=== PATIENT | female | born 1930 | race Asian ===

== ENCOUNTER 2019-03-27 14:18 | Inpatient (IN) | payer OTHER ==
[~2019-03-27] VITALS: Ht 152.4 cm; Wt 73.9 kg
[2019-03-27] MEDS ORDERED: HYDROmorphONE 0.5 MG/0.5 ML SYG IM STA (15:02)
[2019-03-27] MEDS ORDERED: ONDANSETRON (ODT) 4 MG TAB ODT STA (15:02)
[2019-03-27] MEDS ORDERED: THYROID PO (16:29)
[2019-03-27] MEDS ORDERED: SOD CHLORIDE 0.9% 1,000 ML IV SCH (17:32)
--- NOTE | 2019-03-27 17:37 | ERD ---
ER Documentation Chief Complaint Chief Complaint Back pain HPI This 88-year-old female who was walking across her living room last night with her walker when she said that she got it caught on the carpet and she fell back onto her buttocks. She says she did not hit her head and get knocked unconscious and is complaining of sharp mid lumbar pain today. No radiation pain down the legs no loss of bowel or bladder. Denies any headache neck pain or focal neurological complaints no saddle anesthesia or numbness or weakness in her legs ROS All systems reviewed and are negative except as per history of present illness. Medications Home Meds Reported Medications [Thyroid] No Conflict Check, 1 TAB PO Q28D 03/27/19 Allergies Allergies: Coded Allergies: Penicillins (Unverified Allergy, Unknown, 03/27/19) PMhx/Soc History of Surgery: Yes (Hysterectomy, R mastectomy) Anesthesia Reaction: No Hx Neurological Disorder: No Hx Respiratory Disorders: No Hx Cardiac Disorders: Yes (HTN, pacemaker) Hx Psychiatric Problems: No Hx Miscellaneous Medical Probl: No Hx Alcohol Use: No Hx Substance Use: No Hx Tobacco Use: Yes (Quit 2011) Smoking Status: Former smoker FmHx Family History: No coronary disease Physical Exam Vitals Vital Signs Date Temp Pulse Resp B/P (MAP) Pulse Ox O2 O2 Flow FiO2 Time Delivery Rate 03/27/19 91 16 138/67 94 Nasal 3.0 16:07 (90) Cannula 03/27/19 98.4 84 18 185/59 91 Room Air 15:00 (101) Physical Exam Const: No acute distress Head: Atraumatic Eyes: Normal Conjunctiva ENT: Normal External Ears, Nose and Mouth. Neck: Full range of motion. No meningismus. Resp: Clear to auscultation bilaterally Cardio: Regular rate and rhythm, no murmurs Abd: Soft, non tender, non distended. Normal bowel sounds Skin: No petechiae or rashes Back: There is midline lumbar tenderness around lumbar 2,3,4, lumbar paraspinal muscle spasm, negative straight leg test Ext: No cyanosis, or edema Neur: Awake and alert Psych: Normal Mood and Affect Results 24 hrs Current Medications Medications Dose Sig/Justin Start Time Status Last (Trade) Ordered Route PRN Stop Time Admin Dose Reason Admin 1 mg ONCE STAT 03/27/19 DC 03/27/19 Hydromorphone IM 15:02 03/27/19 15:20 HCl 15:11 (Dilaudid) Ondansetron 4 mg ONCE STAT 03/27/19 DC 03/27/19 HCl (Zofran ODT 15:02 03/27/19 15:19 Odt) 15:11 Procedures/MDM Patient: RENNY RUTLEDGE : 1930 Age: 88 Sex: F MR #: [id number] DOS: 03/27/19 1502 Ordering MD: SANDRA CHANDRA DO Location: E/R Room/Bed: PROCEDURE: CT Lumbar Spine without contrast. CLINICAL INDICATION: Trauma. TECHNIQUE: The study was performed on a multislice multidetector CT scanner. Spiral axial 1 mm images were obtained through the lumbar spine without intravenous contrast. 1 or more of the following dose reduction techniques were utilized: Automated exposure control, adjustment of the mA and/or kV according to patient's size, iterative reconstruction technique. Coronal and sagittal reformations were obtained. The images were reviewed on a PACS workstation. DICOM images are available. RADIATION DOSE: CTDIvol: 35.47 mGy mGy DLP: 1020.33 mGy.cm mGy-cm COMPARISON: No prior studies are available for comparison. FINDINGS: There is diffuse moderate osteopenia there is a 15% intervertebral body height loss in the L for a vertebral body with suggestion of subchondral sclerosis. The remaining vertebral body heights are maintained. There are anterior osteophytes at L5-S1. There is transitional anatomy with 6 lumbar-type vertebral bodies and lumbarization of the S1 vertebral body. The posterior elements are unremarkable. L1-L2: The posterior margin of the disc is normal in appearance. No significant disc bulge or protrusion is evident. The central canal and neural foramina are adequately patent. L2-L3: The posterior margin of the disc is normal in appearance. No significant disc bulge or protrusion is evident. The central canal and neural foramina are adequately patent. L3-L4: There is a 1-2 mm annular disc bulge. The thecal sac and lateral recesses are patent. There is mild bilateral facet spondylosis. The neural foramina are patent. L4-L5: There is a 1-2 mm annular disc bulge. The thecal sac and lateral recesses are patent. There is mild bilateral facet spondylosis. The neural foramina are patent. L5-S1: There is a 2-3 mm annular disc bulge, slightly asymmetric to the foraminal regions. The thecal sac and lateral recesses are patent. There is mild bilateral facet spondylosis. There is mild bilateral neural foraminal narrowing. IMPRESSION: 1. 15% anterior compression deformity of the L3 vertebral body, concerning for possible acute fracture. MRI is recommended to exclude fracture. 2. Diffuse moderate osteopenia. 3. Transitional anatomy with 6 lumbar-type vertebral bodies. 4. Multilevel mild spondylosis/degenerative enthesopathy without significant narrowing of the lumbar thecal sac, lateral recesses or neural foramina. RPTAT: HGAS .Jermaine Rosas MD, MD Date Time Electronically viewed and signed by .Jermaine Rosas MD, on 03/27/2019 16:27 .S/ CC: SANDRA CHANDRA DO [id number] The patient lives alone and cannot take care of herself. She is unable to walk and can do her activities of daily living. She is also having some pain still at any movement after pain medicine was given here. We will admit for pain control and placement Departure Diagnosis: Primary Impression: Compression fracture of lumbar vertebra Encounter type: initial encounter Lumbar vertebra fracture level: L3 Qualified Codes: S32.030A - Wedge compression fracture of third lumbar vertebra, initial encounter for closed fracture Condition: Stable SANDRA CHANDRA DO March 27, 2019 17:36
[2019-03-27] MEDS ORDERED: ACETAMINOPHEN 325 MG TAB PO PRN (18:00)
[2019-03-27] MEDS ORDERED: ONDANSETRON 4 MG INJ IV PRN (18:00)
--- NOTE | 2019-03-27 19:06 | HP ---
Date/Time of Note Date/Time of Note DATE: 03/27/19 TIME: 18:58 Assessment/Plan VTE Prophylaxis SCD applied (from Nsg): Yes Pharmacological prophylaxis: heparin Lines/Catheters IV Catheter Type (from Nrsg): Saline Lock Assessment/Plan Hospital Course 88 yo female with h/o hyperparathyroidsm and with PPM for unclear indication who presents after a fall yesterday and found to have possible L3 fracture on CT - Will provide analgesia - Consult neurosurgery for evaluation - Will hold off on further imaging for now - From her history this was a mechanical fall though not entirely clear. I will notify her actuary manager to her admission and consider ppm interrogation - Will check routine labs h/o hypeparathyroid: - check labs. will notify her cdl company driver Dr Ybarra to her admission HPI/ROS Admit Date/Time Admit Date/Time March 27, 2019 at 17:34 Hx of Present Illness 88 yo female with h/o hyperparathyroidism and h/o PPM who presents with back pain after fall Patient lives alone. Ambulates with walker. She fell yesterday evening and was unable to get up. Her kids have a camera monitor in her house where they noticed her down so came to help her. She was in terrible pain so could not get up. Came to ED where CT back shows 15% anterior compression deformity of the L3 vertebral body, concerning for possible acute fracture She has been given IV analgesia and currently feels fine She says she did not syncopize, that she tripped and fell She was down for numerous hours but not clear how long exactly She denies any focal weakness or numbness ROS Constitutional: no complaints, improved Eyes: no complaints ENT: no complaints Respiratory: no complaints Cardiovascular: no complaints Gastrointestinal: no complaints Genitourinary: no complaints Musculoskeletal: no complaints Skin: no complaints Neurologic: no complaints Endocrine: no complaints Lymphatic: no complaints Psychological: no complaints, nl mood/affect Immunologic: no complaints PMH/Family/Social Past Medical History Medical History: no pertinent history Medications Current Medications Ondansetron HCl (Zofran Inj) 4 mg BRIDGE ORDER PRN IV NAUSEA/VOMITING; Start 03/27/19 at 18:00; Stop 03/28/19 at 17:59 Acetaminophen (Tylenol Tab) 650 mg ER BRIDGE PRN PO .MILD PAIN 1-3 OR TEMP; Start 5/3/19 at 18:00; Stop 03/28/19 at 17:59 Coded Allergies: Penicillins (Unverified Allergy, Unknown, 03/27/19) Past Surgical History Past Surgical Hx: no surgical history Family History Significant Family History: no pertinent family hx Social History Alcohol Use: none Smoking Status: Former smoker Drug Use: none Exam/Review of Systems Vital Signs Vitals Vital Signs Date Temp Pulse Resp B/P (MAP) Pulse Ox O2 O2 Flow FiO2 Time Delivery Rate 03/27/19 85 18 100/65 95 Room Air 17:58 (77) 03/27/19 3.0 16:07 03/27/19 98.4 15:00 Exam Constitutional: alert, oriented, well developed Psych: no complaints, nl mood/affect Head: normocephalic, atraumatic Eyes: nl conjunctiva, EOMI, nl lids, nl sclera, PERRL ENMT: nl external ears & nose, nl lips & teeth, nl nasal mucosa & septum Neck: supple, non-tender Respiratory: clear to auscultation, normal air movement Cardiovascular: regular rate and rhythm, nl pulses Gastrointestinal: soft, nl liver, spleen, non-tender Musculoskeletal: nl extremities to inspection Extremities: normal pulses Neurological: INVESTIGATIONS CHIEF II-XII intact, nl mental status, nl speech, nl strength Skin: nl turgor; No rash or lesions Lymph: nl lymph nodes BREANNA BLOOD MD March 27, 2019 19:06
[2019-03-27 19:11] VITALS: BP 132/61; PULSE 85; RESP 18
[2019-03-27] MEDS ORDERED: NACL 0.9% 3 ML SYG IV SCH (19:30)
[2019-03-27] MEDS ORDERED: HYDROCODONE/APAP (5/325) TAB PO PRN (19:30)
[2019-03-27] MEDS ORDERED: IBUPROFEN 600 MG TAB PO PRN (19:30)
[2019-03-27 20:09] VITALS: BP 145/63; PULSE 88; RESP 18
[2019-03-28 02:19] VITALS: BP 155/70; PULSE 92; RESP 18
[2019-03-28] MEDS: ACETAMINOPHEN 325 MG TAB PO PRN (03:45)
[2019-03-28 07:14] VITALS: BP 149/67; PULSE 77; RESP 16
--- NOTE | 2019-03-28 09:06 | CONS ---
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 In most cases of spontaneous spinal fracture, recommendation is for initiation of parathyroid hormone analog anabolic bone therapy. However, this would be contraindicated in pt. w/ primary hyperparathyroidism. Will order reclast 5 mg IV x 1 to ensure pt. remains on bisphosphonate therapy. Qualifiers: Qualified Codes: M80.88XA - Other osteoporosis with current pathological fracture, vertebra(e), initial encounter for fracture (2) Primary hyperparathyroidism Status: Chronic Comment: Pt. likely should have outpt. reeval by head and neck surgeons or tumor-endo surgeons to decide if this qualifies her as better candidate for parathyroidectomy. (3) Type 2 diabetes mellitus without complications Status: Chronic Comment: New diagnosis of T2DM w/ A1c 7.3%. Although this is in goal for her age pt. would likely do better w/ low-risk therapy of linalgiptin daily. Will add this and monitor glucose Qualifiers: Qualified Codes: E11.9 - Type 2 diabetes mellitus without complications Consultation Date/Type/Reason Admit Date/Time March 27, 2019 at 17:34 Date of Consultation: March 28, 2019 Type of Consult Endocrinology Reason for Consultation Osteoporotic compression fracture in primary hyperparathyroidism Requesting Provider: BREANNA BLOOD MD Date/Time of Note DATE: 03/28/19 TIME: 08:54 Hx of Present Illness 88 y/o C F w/ h/o primary HPH and osteoporosis, BrCA, sick sinus syndrome w/ pacemaker in [facility] until yesterday w/ fall at home. In pain and unable to get up. Daughters had camera in house and came and brought her to hospital. In ER found to have 15% compression fracture of L3. Neurosurgery consult pending. Of note, pt. off her ibandronate for 2-3 months but PMD restarted it last month. Found to have A1c 7.3%. Endo consulted. Constitutional: no complaints Eyes: no complaints ENT: no complaints Respiratory: no complaints Cardiovascular: no complaints Gastrointestinal: no complaints Genitourinary: no complaints Musculoskeletal: back pain Neurologic: no complaints Past Medical History Medical History: cancer (breast), other (primary hyperparathyroidism, bradyarrhythmia) Home Meds Reported Medications [Thyroid] No Conflict Check, 1 TAB PO Q28D 03/27/19 Medications Current Medications Ondansetron HCl (Zofran Inj) 4 mg BRIDGE ORDER PRN IV NAUSEA/VOMITING; Start 03/27/19 at 18:00; Stop 03/28/19 at 17:59 Acetaminophen (Tylenol Tab) 650 mg ER BRIDGE PRN PO .MILD PAIN 1-3 OR TEMP; Start 03/27/19 at 18:00; Stop 03/28/19 at 17:59 IV Flush (NS 3 ml) 3 ml PER PROTOCOL IV ; Start 03/27/19 at 19:30 Ibuprofen (Motrin) 600 mg Q6H PRN PO .PAIN 1-3; Start 03/27/19 at 19:30 Acetaminophen/ Hydrocodone Bitart ([place] (5/325)) 1 tab Q6H PRN PO .MOD PAIN 4- 6; Start 03/27/19 at 19:30 Morphine Sulfate (morphine) 2 mg Q4H PRN IV .SEVERE PAIN 7-10; Start 03/27/19 at 19:30 Acetaminophen (Tylenol Tab) 650 mg Q6H PRN PO MILD PAIN(1-3)OR ELEVATED TEMP Last administered on 03/28/19at 03:45; Admin Dose 650 MG; Start 03/28/19 at 04:00 Allergies: Coded Allergies: Penicillins (Unverified Allergy, Unknown, 03/27/19) Past Surgical History Past Surgical Hx: other (mastectomy, ARMANDO-BSO, pacemaker placement) Family History Significant Family History: COPD (father) Social History b. 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 Alcohol Use: none Smoking Status: Former smoker (4 cigs/d for 60 years, quit when pacemaker was placed) Drug Use: none Exam/Review of Systems Exam Vitals VS - Last 72 Hours, by Label Date Temp Pulse Resp B/P (MAP) Pulse Ox O2 O2 Flow FiO2 Time Delivery Rate 03/28/19 98.4 77 16 149/67 93 Nasal 07:14 (94) Cannula 03/28/19 98.8 05:06 03/28/19 98.8 05:06 03/28/19 100.4 03:45 03/28/19 100.4 02:59 03/28/19 100.1 92 18 155/70 92 02:19 (98) 03/27/19 98.2 88 18 145/63 94 20:09 (90) 03/27/19 98.7 85 18 132/61 94 Nasal 3.0 19:11 (84) Cannula 03/27/19 85 18 100/65 95 Room Air 17:58 (77) 03/27/19 91 16 138/67 94 Nasal 3.0 16:07 (90) Cannula 03/27/19 98.4 84 18 185/59 91 Room Air 15:00 (101) Vital Signs Date Temp Pulse Resp B/P (MAP) Pulse Ox O2 O2 Flow FiO2 Time Delivery Rate 03/28/19 98.4 77 16 149/67 93 Nasal 07:14 (94) Cannula 03/27/19 3.0 19:11 Intake and Output 03/27/19 03/27/19 03/28/19 1515:00 23:00 07:00 IntakeIntake Total 200 ml BalanceBalance 200 ml Constitutional: alert, oriented, obese Psych: no complaints, nl mood/affect Eyes: nl conjunctiva, EOMI, nl lids, nl sclera, PERRL ENMT: nl external ears & nose, mucosa pink and moist Neck: supple, non-tender; No bruits, No masses, No thyromegaly Respiratory: clear to auscultation, normal air movement Cardiovascular: regular rate and rhythm, nl pulses; No edema, No murmurs/extra sounds, No rub Gastrointestinal: soft, nl liver, spleen, non-tender, bowel sounds; No mass, No rebound or guarding Musculoskeletal: nl extremities to inspection Extremities: normal pulses; No cyanosis, No clubbing, No edema Neurological: LABEL FUSER TENDER II-XII intact, nl mental status, nl speech, nl strength Results Result Diagram: 03/28/19 0540 03/28/19 0540 Results 24hrs Laboratory Tests Test 03/27/19 19:32 03/28/19 05:40 White Blood Count 9.7 11.2 H Red Blood Count 4.91 4.65 Hemoglobin 14.8 14.1 Hematocrit 45.6 42.4 Mean Corpuscular Volume 92.9 91.2 Mean Corpuscular Hemoglobin 30.1 30.3 Mean Corpuscular Hemoglobin Concent 32.5 33.3 Red Cell Distribution Width 13.8 13.9 Platelet Count 305 308 Mean Platelet Volume 9.3 9.6 Immature Granulocytes % 0.600 H 0.500 H Neutrophils % 77.1 H 79.7 H Lymphocytes % 14.9 L 11.1 L Monocytes % 5.5 6.8 Eosinophils % 1.4 1.5 Basophils % 0.5 0.4 Nucleated Red Blood Cells % 0.0 0.0 Immature Granulocytes # 0.060 H 0.060 H Neutrophils # 7.5 8.9 H Lymphocytes # 1.5 1.2 Monocytes # 0.5 0.8 Eosinophils # 0.1 0.2 Basophils # 0.1 0.1 Nucleated Red Blood Cells # 0.0 0.0 Prothrombin Time 13.2 Prothrombin Time Ratio 1.0 INR International Normalized Ratio 0.99 Sodium Level 138 137 Potassium Level 4.8 4.6 Chloride Level 105 104 Carbon Dioxide Level 25 25 Anion Gap 8 8 Blood Urea Nitrogen 13 13 Creatinine 0.56 0.66 Est Glomerular Filtrat Rate mL/min Glucose Level 146 230 H Calcium Level 10.9 H 11.1 H Total Bilirubin 0.7 0.5 Direct Bilirubin 0.00 0.00 Indirect Bilirubin 0.7 0.5 Aspartate Amino Transf (AST/SGOT) 22 23 Alanine Aminotransferase (ALT/SGPT) 16 15 Alkaline Phosphatase 130 H 114 Total Protein 7.6 7.0 Albumin 3.8 3.5 Globulin 3.80 H 3.50 H Albumin/Globulin Ratio 1.00 1.00 Hemoglobin A1c 7.3 H Medications Medication Current Medications Ondansetron HCl (Zofran Inj) 4 mg BRIDGE ORDER PRN IV NAUSEA/VOMITING; Start 03/27/19 at 18:00; Stop 03/28/19 at 17:59 Acetaminophen (Tylenol Tab) 650 mg ER BRIDGE PRN PO .MILD PAIN 1-3 OR TEMP; Start 03/27/19 at 18:00; Stop 03/28/19 at 17:59 IV Flush (NS 3 ml) 3 ml PER PROTOCOL IV ; Start 03/27/19 at 19:30 Ibuprofen (Motrin) 600 mg Q6H PRN PO .PAIN 1-3; Start 03/27/19 at 19:30 Acetaminophen/ Hydrocodone Bitart ([place] (5/325)) 1 tab Q6H PRN PO .MOD PAIN 4- 6; Start 03/27/19 at 19:30 Morphine Sulfate (morphine) 2 mg Q4H PRN IV .SEVERE PAIN 7-10; Start 03/27/19 at 19:30 Acetaminophen (Tylenol Tab) 650 mg Q6H PRN PO MILD PAIN(1-3)OR ELEVATED TEMP Last administered on 03/28/19at 03:45; Admin Dose 650 MG; Start 03/28/19 at 04:00 CHIKA GANDHI MD March 28, 2019 09:05
[2019-03-28] MEDS ORDERED: GLUCOSE GEL 15 GRAM TUBE BUCCAL PRN (09:30)
[2019-03-28] MEDS ORDERED: DEXTROSE 50% 50 ML SYRINGE IV PRN ×2 (09:30)
[2019-03-28] MEDS ORDERED: GLUCAGON 1 MG INJ IM PRN (09:30)
[2019-03-28] MEDS ORDERED: GLUCOSE GEL 15 GRAM TUBE PO PRN ×2 (09:30)
[2019-03-28] MEDS: LINAGLIPTIN 5 MG TABLET PO SCH (09:32)
[2019-03-28] MEDS: morphine 2 MG INJ IV PRN ×2 (09:36→15:11)
[2019-03-28] MEDS ORDERED: ZOLEDRONIC ACID IVPB ONE (11:00)
[2019-03-28] MEDS ORDERED: SOD CHLORIDE 0.9% IVPB ONE (11:00)
[2019-03-28] MEDS: INSULIN ASPART [NOVOLOG] 3 ML PEN SC SCH ×3 (12:00→21:00)
--- NOTE | 2019-03-28 14:11 | QN ---
Documentation Comment 88 year old female s/p ground level fall complains of back pain was evaluated with CT of the lumbar spine showing a small superior endplate fracture with minimal associated loss of height and no retropulsion of bone or canal compromise. I have personally reviewed these images and to my eye this fracture may not even be an acute fracture. In any event it is a stable fracture pattern and no intervention is indicated. The patient may be fitted for a TLSO brace and follow up with me for repeat xray. Thank you. LIZZY BIGGS MD March 28, 2019 14:11
[2019-03-28 14:57] VITALS: BP 148/75; PULSE 80; RESP 16
--- NOTE | 2019-03-28 15:04 | PN ---
Date/Time of Note Date/Time of Note DATE: 03/28/19 TIME: 15:02 Assessment/Plan VTE Prophylaxis Risk score (from Ns)>0 risk: 7 SCD applied (from Ns): Yes Pharmacological prophylaxis: heparin Lines/Catheters IV Catheter Type (from Nrs): Peripheral IV Urinary Cath still in place: No Assessment/Plan Hospital Course 88 yo female with h/o hyperparathyroidsm and with PPM for unclear indication who presents after a fall yesterday and found to have possible L3 fracture on CT - Will provide analgesia - Per Dr Rosenberg plan for TLSO brace and clinic follow up - From her history this was a mechanical fall though not entirely clear. I will notify her squeegee finisher to her admission and consider ppm interrogation - Will check routine labs h/o hypeparathyroid: - Management per Dr Muñoz Hyperparathyroid with hypercalcemai: - s/p bisphosphonate PT/OT eval for dc planning Result Diagram: 03/28/19 0540 03/28/19 0540 Results 24hrs Laboratory Tests Test 03/27/19 19:32 03/28/19 05:40 03/28/19 09:30 03/28/19 12:45 White Blood Count 9.7 11.2 H Red Blood Count 4.91 4.65 Hemoglobin 14.8 14.1 Hematocrit 45.6 42.4 Mean Corpuscular Volume 92.9 91.2 Mean Corpuscular 30.1 30.3 Hemoglobin Mean Corpuscular 32.5 33.3 Hemoglobin Concent Red Cell Distribution 13.8 13.9 Width Platelet Count 305 308 Mean Platelet Volume 9.3 9.6 Immature Granulocytes % 0.600 H 0.500 H Neutrophils % 77.1 H 79.7 H Lymphocytes % 14.9 L 11.1 L Monocytes % 5.5 6.8 Eosinophils % 1.4 1.5 Basophils % 0.5 0.4 Nucleated Red Blood 0.0 0.0 Cells % Immature Granulocytes # 0.060 H 0.060 H Neutrophils # 7.5 8.9 H Lymphocytes # 1.5 1.2 Monocytes # 0.5 0.8 Eosinophils # 0.1 0.2 Basophils # 0.1 0.1 Nucleated Red Blood 0.0 0.0 Cells # Prothrombin Time 13.2 Prothrombin Time Ratio 1.0 INR International 0.99 Normalized Ratio Sodium Level 138 137 Potassium Level 4.8 4.6 Chloride Level 105 104 Carbon Dioxide Level 25 25 Anion Gap 8 8 Blood Urea Nitrogen 13 13 Creatinine 0.56 0.66 Est Glomerular Filtrat Rate mL/min Glucose Level 146 230 H Calcium Level 10.9 H 11.1 H Total Bilirubin 0.7 0.5 Direct Bilirubin 0.00 0.00 Indirect Bilirubin 0.7 0.5 Aspartate Amino 22 23 Transf (AST/SGOT) Alanine 16 15 Aminotransferase (ALT/SG PT) Alkaline Phosphatase 130 H 114 Total Protein 7.6 7.0 Albumin 3.8 3.5 Globulin 3.80 H 3.50 H Albumin/Globulin Ratio 1.00 1.00 Hemoglobin A1c 7.3 H Bedside Glucose 225 H 129 Subjective 24 Hr Interval Summary Free Text/Dictation No pain No focal deficit Discussed at length need for fall prevention at home Cleared by Dr Rosenberg Exam/Review of Systems Exam Vitals Vital Signs Date Temp Pulse Resp B/P (MAP) Pulse Ox O2 O2 Flow FiO2 Time Delivery Rate 03/28/19 98.6 80 16 148/75 95 Nasal 14:57 (99) Cannula 03/28/19 2.0 08:00 Intake and Output 03/27/19 03/27/19 03/28/19 1515:00 23:00 07:00 IntakeIntake Total 200 ml BalanceBalance 200 ml Results Results 24hrs Laboratory Tests Test 03/27/19 19:32 03/28/19 05:40 03/28/19 09:30 03/28/19 12:45 White Blood Count 9.7 11.2 H Red Blood Count 4.91 4.65 Hemoglobin 14.8 14.1 Hematocrit 45.6 42.4 Mean Corpuscular Volume 92.9 91.2 Mean Corpuscular 30.1 30.3 Hemoglobin Mean Corpuscular 32.5 33.3 Hemoglobin Concent Red Cell Distribution 13.8 13.9 Width Platelet Count 305 308 Mean Platelet Volume 9.3 9.6 Immature Granulocytes % 0.600 H 0.500 H Neutrophils % 77.1 H 79.7 H Lymphocytes % 14.9 L 11.1 L Monocytes % 5.5 6.8 Eosinophils % 1.4 1.5 Basophils % 0.5 0.4 Nucleated Red Blood 0.0 0.0 Cells % Immature Granulocytes # 0.060 H 0.060 H Neutrophils # 7.5 8.9 H Lymphocytes # 1.5 1.2 Monocytes # 0.5 0.8 Eosinophils # 0.1 0.2 Basophils # 0.1 0.1 Nucleated Red Blood 0.0 0.0 Cells # Prothrombin Time 13.2 Prothrombin Time Ratio 1.0 INR International 0.99 Normalized Ratio Sodium Level 138 137 Potassium Level 4.8 4.6 Chloride Level 105 104 Carbon Dioxide Level 25 25 Anion Gap 8 8 Blood Urea Nitrogen 13 13 Creatinine 0.56 0.66 Est Glomerular Filtrat Rate mL/min Glucose Level 146 230 H Calcium Level 10.9 H 11.1 H Total Bilirubin 0.7 0.5 Direct Bilirubin 0.00 0.00 Indirect Bilirubin 0.7 0.5 Aspartate Amino 22 23 Transf (AST/SGOT) Alanine 16 15 Aminotransferase (ALT/SG PT) Alkaline Phosphatase 130 H 114 Total Protein 7.6 7.0 Albumin 3.8 3.5 Globulin 3.80 H 3.50 H Albumin/Globulin Ratio 1.00 1.00 Hemoglobin A1c 7.3 H Bedside Glucose 225 H 129 Medications Medication Current Medications IV Flush (NS 3 ml) 3 ml PER PROTOCOL IV ; Start 03/27/19 at 19:30 Ibuprofen (Motrin) 600 mg Q6H PRN PO .PAIN 1-3; Start 03/27/19 at 19:30 Acetaminophen/ Hydrocodone Bitart ([place] (5/325)) 1 tab Q6H PRN PO .MOD PAIN 4- 6; Start 03/27/19 at 19:30 Morphine Sulfate (morphine) 2 mg Q4H PRN IV .SEVERE PAIN 7-10 Last administered on 03/28/19at 09:36; Admin Dose 2 MG; Start 03/27/19 at 19:30 Acetaminophen (Tylenol Tab) 650 mg Q6H PRN PO MILD PAIN(1-3)OR ELEVATED TEMP Last administered on 03/28/19at 03:45; Admin Dose 650 MG; Start 03/28/19 at 04:00 Linagliptin (Tradjenta) 5 mg DAILY PO Last administered on 03/28/19at 09:32; Admin Dose 5 MG; Start 03/28/19 at 09:30 Insulin Aspart (Novolog Insulin Pen) NOVOLOG *MILD* ALGORITHM WITH MEALS BEDTIME SC ; Start 03/28/19 at 12:00 Miscellaneous Information 1 ea NOTE XX ; Start 03/28/19 at 09:30 Glucose (Glutose) 15 gm Q15M PRN PO DECREASED GLUCOSE; Start 03/28/19 at 09:30 Glucose (Glutose) 22.5 gm Q15M PRN PO DECREASED GLUCOSE; Start 03/28/19 at 09:30 Dextrose (D50w Syringe) 25 ml Q15M PRN IV DECREASED GLUCOSE; Start 03/28/19 at 09:30 Dextrose (D50w Syringe) 50 ml Q15M PRN IV DECREASED GLUCOSE; Start 03/28/19 at 09:30 Glucagon (Glucagen) 1 mg Q15M PRN IM DECREASED GLUCOSE; Start 03/28/19 at 09:30 Glucose (Glutose) 15 gm Q15M PRN BUCCAL DECREASED GLUCOSE; Start 03/28/19 at 09:30 BREANNA BLOOD MD March 28, 2019 15:04
[2019-03-28 19:30] VITALS: BP_SYST 111; BP_SYST 136; BP_DIAS 59; BP_DIAS 67; PULSE 83; PULSE 88; RESP 16; RESP 18
[2019-03-29 07:39] VITALS: BP 120/58; PULSE 90; RESP 16
[2019-03-29] MEDS: INSULIN ASPART [NOVOLOG] 3 ML PEN SC SCH ×4 (08:00→21:00)
[2019-03-29] MEDS: LINAGLIPTIN 5 MG TABLET PO SCH (08:13)
--- NOTE | 2019-03-29 08:16 | CONS ---
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 Pt. does not require any further osteoporosis therapy for 1 year from yesterday's date. Qualifiers: Encounter type: initial encounter Qualified Codes: M80.88XA - Other osteoporosis with current pathological fracture, vertebra(e), initial encounter for fracture (2) Primary hyperparathyroidism Status: Chronic Comment: Consider outpt. parathyroidectomy. Have discussed this w/ family. (3) Type 2 diabetes mellitus without complications Status: Chronic Comment: Excellent control w/ addition of linagliptin. DPP-Christie therapy should be continued after d/c. Qualifiers: Diabetes mellitus ferry terminal supervisor insulin use: without fci use Qualified Codes: E11.9 - Type 2 diabetes mellitus without complications Assessment/Plan (Daily) Will sign off and follow peripherally for now. Reconsult prn. Consultation Date/Type/Reason Admit Date/Time March 28, 2019 at 15:07 Initial Consult Date 03/28/19 Type of Consult Endocrinology Reason for Consultation Osteoporotic fracture w/ h/o primary HPH Requesting Provider: BREANNA BLOOD MD Date/Time of Note DATE: 03/29/19 TIME: 08:13 24 HR Interval Summary Constitutional: no complaints, improved Detailed Summary Respiratory: no complaints Cardiovascular: no complaints Gastrointestinal: no complaints Genitourinary: no complaints Musculoskeletal: back pain (mild) Neurologic: no complaints Exam/Review of Systems Exam Vitals VS - Last 72 Hours, by Label Date Temp Pulse Resp B/P (MAP) Pulse Ox O2 O2 Flow FiO2 Time Delivery Rate 03/29/19 99.2 90 16 120/58 95 Nasal 07:39 (78) Cannula 03/28/19 Nasal 2.0 22:12 Cannula 03/28/19 99.3 88 16 136/67 94 19:30 (90) 03/28/19 98.6 80 16 148/75 95 Nasal 14:57 (99) Cannula 03/28/19 Nasal 2.0 08:00 Cannula 03/28/19 98.4 77 16 149/67 93 Nasal 07:14 (94) Cannula 03/28/19 98.8 05:06 03/28/19 98.8 05:06 03/28/19 100.4 03:45 03/28/19 100.4 02:59 03/28/19 100.1 92 18 155/70 92 02:19 (98) 03/27/19 98.2 88 18 145/63 94 20:09 (90) 03/27/19 98.7 85 18 132/61 94 Nasal 3.0 19:11 (84) Cannula 03/27/19 85 18 100/65 95 Room Air 17:58 (77) 03/27/19 91 16 138/67 94 Nasal 3.0 16:07 (90) Cannula 03/27/19 98.4 84 18 185/59 91 Room Air 15:00 (101) Vital Signs Date Temp Pulse Resp B/P (MAP) Pulse Ox O2 O2 Flow FiO2 Time Delivery Rate 03/29/19 99.2 90 16 120/58 95 Nasal 07:39 (78) Cannula 03/28/19 2.0 22:12 Intake and Output 03/28/19 03/28/19 03/29/19 1515:00 23:00 07:00 IntakeIntake Total 226.5 ml 120 ml BalanceBalance 226.5 ml 120 ml Constitutional: alert, oriented, well developed Psych: no complaints, nl mood/affect Respiratory: clear to auscultation, normal air movement Cardiovascular: regular rate and rhythm, nl pulses; No edema, No murmurs/extra sounds, No rub Gastrointestinal: soft, nl liver, spleen, non-tender, bowel sounds; No mass, No rebound or guarding Musculoskeletal: nl extremities to inspection Extremities: normal pulses; No cyanosis, No clubbing, No edema Neurological: CONSTRUCTION ECONOMIST II-XII intact, nl mental status, nl speech, nl strength Additional Comments Bedside Glucose - 72 Hours Test 03/28/19 09:30 03/28/19 12:45 03/28/19 17:42 03/28/19 20:32 Bedside 225 129 150 130 Glucose mg/dL (70-220) mg/dL (70-220) mg/dL (70-220) mg/dL (70-220) H Results Result Diagram: 03/28/19 0540 03/28/19 0540 Results 24hrs Laboratory Tests Test 03/28/19 09:30 03/28/19 12:45 03/28/19 17:42 03/28/19 20:32 Bedside Glucose 225 H 129 150 130 Medications Medication Current Medications IV Flush (NS 3 ml) 3 ml PER PROTOCOL IV ; Start 03/27/19 at 19:30 Ibuprofen (Motrin) 600 mg Q6H PRN PO .PAIN 1-3; Start 03/27/19 at 19:30 Acetaminophen/ Hydrocodone Bitart ([place] (5/325)) 1 tab Q6H PRN PO .MOD PAIN 4- 6; Start 03/27/19 at 19:30 Morphine Sulfate (morphine) 2 mg Q4H PRN IV .SEVERE PAIN 7-10 Last administered on 03/28/19at 15:11; Admin Dose 2 MG; Start 03/27/19 at 19:30 Acetaminophen (Tylenol Tab) 650 mg Q6H PRN PO MILD PAIN(1-3)OR ELEVATED TEMP Last administered on 03/28/19at 03:45; Admin Dose 650 MG; Start 03/28/19 at 04:00 Linagliptin (Tradjenta) 5 mg DAILY PO Last administered on 03/28/19at 09:32; Admi n Dose 5 MG; Start 03/28/19 at 09:30 Insulin Aspart (Novolog Insulin Pen) NOVOLOG *MILD* ALGORITHM WITH MEALS BEDTIME SC Last administered on 03/28/19at 17:47; Admin Dose 1 UNIT; Start 03/28/19 at 12:00 Miscellaneous Information 1 ea NOTE XX ; Start 03/28/19 at 09:30 Glucose (Glutose) 15 gm Q15M PRN PO DECREASED GLUCOSE; Start 03/28/19 at 09:30 Glucose (Glutose) 22.5 gm Q15M PRN PO DECREASED GLUCOSE; Start 03/28/19 at 09:30 Dextrose (D50w Syringe) 25 ml Q15M PRN IV DECREASED GLUCOSE; Start 03/28/19 at 09:30 Dextrose (D50w Syringe) 50 ml Q15M PRN IV DECREASED GLUCOSE; Start 03/28/19 at 09:30 Glucagon (Glucagen) 1 mg Q15M PRN IM DECREASED GLUCOSE; Start 03/28/19 at 09:30 Glucose (Glutose) 15 gm Q15M PRN BUCCAL DECREASED GLUCOSE; Start 03/28/19 at 09:30 CHIKA GANDHI MD March 29, 2019 08:16
--- NOTE | 2019-03-29 13:31 | CONS ---
Assessment/Plan Assessment/Plan Problems: (1) Compression fracture of lumbar vertebra Status: Acute Qualifiers: Qualified Codes: S32.030A - Wedge compression fracture of third lumbar vertebra, initial encounter for closed fracture Assessment/Plan (Daily) 88 year old female with osteoporotic compression fracture at L3 and back pain after a ground level fall. She denies previous back pain, but basd on CT this fracture may not be acute (or may be acute on chronic). In any event the patient has had a TLSO brace delivered and fitted, and she should wear this when upright/ weight bearing for about six weeks or until she has no more pain. Follow up xray at six weeks is advisable (especially if pain is not resolved by then) and she is welcome to follow up with me. Thank you Consultation Date/Type/Reason Admit Date/Time March 28, 2019 at 15:07 Date of Consultation: March 29, 2019 Type of Consult neurosurgery Reason for Consultation 15% anterior compression fracture L3 Date/Time of Note DATE: 03/29/19 TIME: 13:26 Past Medical History Medical History: cancer (breast), other (primary hyperparathyroidism, bradyarrhythmia) Home Meds Reported Medications [Thyroid] No Conflict Check, 1 TAB PO Q28D 03/27/19 Medications Current Medications IV Flush (NS 3 ml) 3 ml PER PROTOCOL IV ; Start 03/27/19 at 19:30 Ibuprofen (Motrin) 600 mg Q6H PRN PO .PAIN 1-3; Start 03/27/19 at 19:30 Acetaminophen/ Hydrocodone Bitart ([place] (5/325)) 1 tab Q6H PRN PO .MOD PAIN 4- 6; Start 03/27/19 at 19:30 Morphine Sulfate (morphine) 2 mg Q4H PRN IV .SEVERE PAIN 7-10 Last administered on 03/28/19at 15:11; Admin Dose 2 MG; Start 03/27/19 at 19:30 Acetaminophen (Tylenol Tab) 650 mg Q6H PRN PO MILD PAIN(1-3)OR ELEVATED TEMP Last administered on 03/28/19at 03:45; Admin Dose 650 MG; Start 03/28/19 at 04:00 Linagliptin (Tradjenta) 5 mg DAILY PO Last administered on 03/29/19at 08:13; Admin Dose 5 MG; Start 03/28/19 at 09:30 Insulin Aspart (Novolog Insulin Pen) NOVOLOG *MILD* ALGORITHM WITH MEALS B EDTIME SC Last administered on 03/28/19at 17:47; Admin Dose 1 UNIT; Start 03/28/19 at 12:00 Miscellaneous Information 1 ea NOTE XX ; Start 03/28/19 at 09:30 Glucose (Glutose) 15 gm Q15M PRN PO DECREASED GLUCOSE; Start 03/28/19 at 09:30 Glucose (Glutose) 22.5 gm Q15M PRN PO DECREASED GLUCOSE; Start 03/28/19 at 09:30 Dextrose (D50w Syringe) 25 ml Q15M PRN IV DECREASED GLUCOSE; Start 03/28/19 at 09:30 Dextrose (D50w Syringe) 50 ml Q15M PRN IV DECREASED GLUCOSE; Start 03/28/19 at 09:30 Glucagon (Glucagen) 1 mg Q15M PRN IM DECREASED GLUCOSE; Start 03/28/19 at 09:30 Glucose (Glutose) 15 gm Q15M PRN BUCCAL DECREASED GLUCOSE; Start 03/28/19 at 09:30 Allergies: Coded Allergies: Penicillins (Unverified Allergy, Unknown, 03/27/19) Past Surgical History Past Surgical Hx: other (mastectomy, ARMANDO-BSO, pacemaker placement) Social History Alcohol Use: none Smoking Status: Former smoker (4 cigs/d for 60 years, quit when pacemaker was placed) Drug Use: none Exam/Review of Systems Exam Vitals Vital Signs Date Temp Pulse Resp B/P (MAP) Pulse Ox O2 O2 Flow FiO2 Time Delivery Rate 03/29/19 Nasal 2.0 08:00 Cannula 03/29/19 99.2 90 16 120/58 95 07:39 (78) Intake and Output 03/28/19 03/28/19 03/29/19 1515:00 23:00 07:00 IntakeIntake Total 226.5 ml 120 ml BalanceBalance 226.5 ml 120 ml Constitutional: alert, oriented, well developed Psych: no complaints, nl mood/affect Head: normocephalic, atraumatic Eyes: nl conjunctiva, EOMI, nl lids ENMT: nl external ears & nose Neck: non-tender Musculoskeletal: nl extremities to inspection Extremities: normal pulses Neurological: LOOSE HAND PACKER II-XII intact, nl mental status, nl speech, nl strength Additional Comments Moving all extremities with full power. Denies any numbness or bowel or bladder complaints. Results Result Diagram: 03/28/19 0540 03/28/19 0540 Results 24hrs Laboratory Tests Test 03/28/19 17:42 03/28/19 20:32 03/29/19 08:12 03/29/19 12:34 Bedside Glucose 150 130 129 137 Medications Medication Current Medications IV Flush (NS 3 ml) 3 ml PER PROTOCOL IV ; Start 03/27/19 at 19:30 Ibuprofen (Motrin) 600 mg Q6H PRN PO .PAIN 1-3; Start 03/27/19 at 19:30 Acetaminophen/ Hydrocodone Bitart ([place] (5/325)) 1 tab Q6H PRN PO .MOD PAIN 4- 6; Start 03/27/19 at 19:30 Morphine Sulfate (morphine) 2 mg Q4H PRN IV .SEVERE PAIN 7-10 Last administered on 03/28/19at 15:11; Admin Dose 2 MG; Start 03/27/19 at 19:30 Acetaminophen (Tylenol Tab) 650 mg Q6H PRN PO MILD PAIN(1-3)OR ELEVATED TEMP Last administered on 03/28/19at 03:45; Admin Dose 650 MG; Start 03/28/19 at 04:00 Linagliptin (Tradjenta) 5 mg DAILY PO Last administered on 03/29/19at 08:13; Admin Dose 5 MG; Start 03/28/19 at 09:30 Insulin Aspart (Novolog Insulin Pen) NOVOLOG *MILD* ALGORITHM WITH MEALS BEDTIME SC Last administered on 03/28/19at 17:47; Admin Dose 1 UNIT; Start 03/28/19 at 12:00 Miscellaneous Information 1 ea NOTE XX ; Start 03/28/19 at 09:30 Glucose (Glutose) 15 gm Q15M PRN PO DECREASED GLUCOSE; Start 03/28/19 at 09:30 Glucose (Glutose) 22.5 gm Q15M PRN PO DECREASED GLUCOSE; Start 03/28/19 at 09:30 Dextrose (D50w Syringe) 25 ml Q15M PRN IV DECREASED GLUCOSE; Start 03/28/19 at 09:30 Dextrose (D50w Syringe) 50 ml Q15M PRN IV DECREASED GLUCOSE; Start 03/28/19 at 09:30 Glucagon (Glucagen) 1 mg Q15M PRN IM DECREASED GLUCOSE; Start 03/28/19 at 09:30 Glucose (Glutose) 15 gm Q15M PRN BUCCAL DECREASED GLUCOSE; Start 03/28/19 at 09:30 LIZZY BIGGS MD March 29, 2019 13:31
[2019-03-29 14:03] VITALS: BP 132/70; PULSE 81; RESP 16
--- NOTE | 2019-03-29 15:13 | PN ---
Date/Time of Note Date/Time of Note DATE: 03/29/19 TIME: 15:12 Assessment/Plan VTE Prophylaxis Risk score (from Nsg)>0 risk: 7 SCD applied (from Nsg): Yes Pharmacological prophylaxis: heparin Lines/Catheters IV Catheter Type (from Nrsg): Saline Lock Urinary Cath still in place: No Assessment/Plan Hospital Course 88 yo female with h/o hyperparathyroidsm and with PPM for unclear indication who presents after a fall yesterday and found to have possible L3 fracture on CT - Will provide analgesia - Per Dr Rosenberg plan for TLSO brace and clinic follow up - From her history this was a mechanical fall though not entirely clear. I will notify her technician support engineer to her admission and consider ppm interrogation - Will check routine labs h/o hypeparathyroid: - Management per Dr Muñoz Hyperparathyroid with hypercalcemai: - s/p bisphosphonate PT/OT eval for dc planning Result Diagram: 03/28/19 0540 03/28/19 0540 Results 24hrs Laboratory Tests Test 03/28/19 17:42 03/28/19 20:32 03/29/19 08:12 03/29/19 12:34 Bedside Glucose 150 130 129 137 Subjective 24 Hr Interval Summary Free Text/Dictation Doing well no complaints TLSO brace has been delivered Awaiting PT evaluation Exam/Review of Systems Exam Vitals Vital Signs Date Temp Pulse Resp B/P (MAP) Pulse Ox O2 O2 Flow FiO2 Time Delivery Rate 03/29/19 98.7 81 16 132/70 96 Nasal 14:03 (90) Cannula 03/29/19 2.0 08:00 Intake and Output 03/28/19 03/28/19 03/29/19 1414:59 22:59 06:59 IntakeIntake Total 226.5 ml 120 ml BalanceBalance 226.5 ml 120 ml Constitutional: alert, oriented, well developed Psych: no complaints, nl mood/affect Head: normocephalic, atraumatic Eyes: nl conjunctiva, EOMI, nl lids, nl sclera, PERRL ENMT: nl external ears & nose, nl lips & teeth, nl nasal mucosa & septum Neck: supple, non-tender Respiratory: clear to auscultation, normal air movement Cardiovascular: regular rate and rhythm, nl pulses Gastrointestinal: soft, nl liver, spleen, non-tender Musculoskeletal: nl extremities to inspection, nl gait and stance Extremities: normal pulses Neurological: COSMETIC MAKER II-XII intact, nl mental status, nl speech, nl strength Skin: nl turgor; No rash or lesions Lymph: nl lymph nodes Results Results 24hrs Laboratory Tests Test 03/28/19 17:42 03/28/19 20:32 03/29/19 08:12 03/29/19 12:34 Bedside Glucose 150 130 129 137 Medications Medication Current Medications IV Flush (NS 3 ml) 3 ml PER PROTOCOL IV ; Start 03/27/19 at 19:30 Ibuprofen (Motrin) 600 mg Q6H PRN PO .PAIN 1-3; Start 03/27/19 at 19:30 Acetaminophen/ Hydrocodone Bitart ([place] (5/325)) 1 tab Q6H PRN PO .MOD PAIN 4- 6; Start 03/27/19 at 19:30 Morphine Sulfate (morphine) 2 mg Q4H PRN IV .SEVERE PAIN 7-10 Last administered on 03/28/19at 15:11; Admin Dose 2 MG; Start 03/27/19 at 19:30 Acetaminophen (Tylenol Tab) 650 mg Q6H PRN PO MILD PAIN(1-3)OR ELEVATED TEMP Last administered on 03/28/19at 03:45; Admin Dose 650 MG; Start 03/28/19 at 04:00 Linagliptin (Tradjenta) 5 mg DAILY PO Last administered on 03/29/19at 08:13; Admin Dose 5 MG; Start 03/28/19 at 09:30 Insulin Aspart (Novolog Insulin Pen) NOVOLOG *MILD* ALGORITHM WITH MEALS BEDTIME SC Last administered on 03/28/19at 17:47; Admin Dose 1 UNIT; Start 03/28/19 at 12:00 Miscellaneous Information 1 ea NOTE XX ; Start 03/28/19 at 09:30 Glucose (Glutose) 15 gm Q15M PRN PO DECREASED GLUCOSE; Start 03/28/19 at 09:30 Glucose (Glutose) 22.5 gm Q15M PRN PO DECREASED GLUCOSE; Start 03/28/19 at 09:30 Dextrose (D50w Syringe) 25 ml Q15M PRN IV DECREASED GLUCOSE; Start 03/28/19 at 09:30 Dextrose (D50w Syringe) 50 ml Q15M PRN IV DECREASED GLUCOSE; Start 03/28/19 at 09:30 Glucagon (Glucagen) 1 mg Q15M PRN IM DECREASED GLUCOSE; Start 03/28/19 at 09:30 Glucose (Glutose) 15 gm Q15M PRN BUCCAL DECREASED GLUCOSE; Start 03/28/19 at 09:30 BREANNA BLOOD MD March 29, 2019 15:12
[2019-03-29 19:21] VITALS: BP 134/63; PULSE 91; RESP 18
[2019-03-30 01:44] VITALS: BP 132/61; PULSE 90
[2019-03-30 07:34] VITALS: BP 146/64; PULSE 79; RESP 16
[2019-03-30] MEDS: INSULIN ASPART [NOVOLOG] 3 ML PEN SC SCH ×4 (07:51→21:00)
[2019-03-30] MEDS: LINAGLIPTIN 5 MG TABLET PO SCH (07:53)
--- NOTE | 2019-03-30 10:37 | PDOCDIS ---
Discharge Instructions CONDITION [id number] Patient Condition: [id number] Stable FOLLOW UP/APPOINTMENTS Follow-up Plan 1. Follow-up with the leather scraper Dr. Pete Linton 2. Also follow-up with the neurosurgeon/back surgeon . He recommended to need a repeat x-ray in 6 weeks especially if your pain is not completely resolved. Wear your TLSO brace anytime you upright or weightbearing until the pain is resolved as well. Name, Degree : Rodrigo Rosenberg MD Specialty : Neurosurgery Other Office ([facility]) [phone] [facility] Office Address : [address] [place] [address] Office Office Area Secretary 3. Also follow-up with your primary care doctor in the next 1 week to notify them of the events during your hospitalization as well as changes we have made to your medications. . VINITA LEYVA March 30, 2019 10:37
[2019-03-30] MEDS ORDERED: SOD CHLORIDE 0.9% 1,000 ML IV SCH (14:30)
[2019-03-30 14:33] VITALS: BP 152/70; PULSE 94; RESP 16
--- NOTE | 2019-03-30 15:53 | PN ---
Date/Time of Note Date/Time of Note DATE: 03/30/19 TIME: 15:40 Assessment/Plan VTE Prophylaxis Risk score (from Nsg)>0 risk: 4 SCD applied (from Nsg): Yes Pharmacological prophylaxis: heparin Lines/Catheters IV Catheter Type (from Nrsg): Peripheral IV Urinary Cath still in place: No Assessment/Plan Hospital Course 88 yo female with h/o hyperparathyroidsm and with PPM for unclear indication who presents after a fall yesterday and found to have possible L3 fracture on CT - continue analgesia - Per Dr Rosenberg plan for TLSO brace and clinic follow up - From her history this was a mechanical fall though not entirely clear. -cardio consult h/o hypeparathyroid: - Management per Dr Muñoz Hyperparathyroid with hypercalcemia: - s/p bisphosphonate UTI? -gentle hydration, urine cultures R knee pain and buckling -Knee XR poor apetite -may be related to possible UTI dispo: patient not quite ready for d/c, IVF, urine cultures, Knee XR, supportive care d/c if/when cleared to home with family and HH as HCP usually doesn't approve ARU. Result Diagram: 03/28/19 0540 03/28/19 0540 Results 24hrs Laboratory Tests Test 03/29/19 17:51 03/29/19 21:17 03/30/19 07:51 03/30/19 11:00 Bedside Glucose 126 139 124 Urine Color HOMER Urine Clarity CLOUDY A Urine pH 6.0 Urine Specific [place] 1.017 Urine Ketones 1+ H Urine Nitrite NEGATIVE Urine Bilirubin NEGATIVE Urine Urobilinogen 2+ H Urine Leukocyte Esterase TRACE A Urine Microscopic RBC 1 Urine Microscopic WBC 2 Urine Bacteria FEW A Urine Hemoglobin NEGATIVE Urine Glucose NEGATIVE Urine Total Protein NEGATIVE Test 03/30/19 12:38 Bedside Glucose 134 Subjective 24 Hr Interval Summary Free Text/Dictation minimal vol and very dark and foul smelling urine Family doesn't want snf, ARU or home back pain is improved poor apetite and fluid intake knee pain and buckling during PT Exam/Review of Systems Exam Vitals Vital Signs Date Temp Pulse Resp B/P (MAP) Pulse Ox O2 O2 Flow FiO2 Time Delivery Rate 03/30/19 98.7 94 16 152/70 93 14:33 (97) 03/29/19 Nasal 14:03 Cannula 03/29/19 2.0 08:00 Intake and Output 03/29/19 03/29/19 03/30/19 1515:00 23:00 07:00 IntakeIntake Total 100 ml 120 ml OutputOutput Total 100 ml BalanceBalance 0 ml 120 ml Exam General: A&O x3, answering questions appropriately, elderly, obese, mildly lethargic HEENT: NC/ AT. PERRL. EOM intact Neck: supple CVS: S1, S2, RRR. no murmurs. no pain on chest wall palpation Lungs: CTA b/l. no wheezing or rhonchi, diminshed Abd: soft, nontender, +BS Ext: moving all extremities, no edema skin: no rashes Results Results 24hrs Laboratory Tests Test 03/29/19 17:51 03/29/19 21:17 03/30/19 07:51 03/30/19 11:00 Bedside Glucose 126 139 124 Urine Color HOMER Urine Clarity CLOUDY A Urine pH 6.0 Urine Specific [place] 1.017 Urine Ketones 1+ H Urine Nitrite NEGATIVE Urine Bilirubin NEGATIVE Urine Urobilinogen 2+ H Urine Leukocyte Esterase TRACE A Urine Microscopic RBC 1 Urine Microscopic WBC 2 Urine Bacteria FEW A Urine Hemoglobin NEGATIVE Urine Glucose NEGATIVE Urine Total Protein NEGATIVE Test 03/30/19 12:38 Bedside Glucose 134 Medications Medication Current Medications IV Flush (NS 3 ml) 3 ml PER PROTOCOL IV Last administered on 03/30/19at 07:54; Admin Dose 3 ML; Start 03/27/19 at 19:30 Ibuprofen (Motrin) 600 mg Q6H PRN PO .PAIN 1-3; Start 03/27/19 at 19:30 Acetaminophen/ Hydrocodone Bitart ([place] (5/325)) 1 tab Q6H PRN PO .MOD PAIN 4- 6; Start 03/27/19 at 19:30 Morphine Sulfate (morphine) 2 mg Q4H PRN IV .SEVERE PAIN 7-10 Last administered on 03/28/19at 15:11; Admin Dose 2 MG; Start 03/27/19 at 19:30 Acetaminophen (Tylenol Tab) 650 mg Q6H PRN PO MILD PAIN(1-3)OR ELEVATED TEMP Last administered on 03/28/19at 03:45; Admin Dose 650 MG; Start 03/28/19 at 04:00 Linagliptin (Tradjenta) 5 mg DAILY PO Last administered on 03/30/19at 07:53; Admin Dose 5 MG; Start 03/28/19 at 09:30 Insulin Aspart (Novolog Insulin Pen) NOVOLOG *MILD* ALGORITHM WITH MEALS BEDTIME SC Last administered on 03/28/19at 17:47; Admin Dose 1 UNIT; Start 03/28/19 at 12:00 Miscellaneous Information 1 ea NOTE XX ; Start 03/28/19 at 09:30 Glucose (Glutose) 15 gm Q15M PRN PO DECREASED GLUCOSE; Start 03/28/19 at 09:30 Glucose (Glutose) 22.5 gm Q15M PRN PO DECREASED GLUCOSE; Start 03/28/19 at 09:30 Dextrose (D50w Syringe) 25 ml Q15M PRN IV DECREASED GLUCOSE; Start 03/28/19 at 09:30 Dextrose (D50w Syringe) 50 ml Q15M PRN IV DECREASED GLUCOSE; Start 03/28/19 at 09:30 Glucagon (Glucagen) 1 mg Q15M PRN IM DECREASED GLUCOSE; Start 03/28/19 at 09:30 Glucose (Glutose) 15 gm Q15M PRN BUCCAL DECREASED GLUCOSE; Start 03/28/19 at 09:30 Sodium Chloride 1,000 ml @ 80 mls/hr [id number] IV Last administered on 03/30/19at 14:28; Admin Dose 80 MLS/HR; Start 03/30/19 at 14:30; Stop 03/31/19 at 02:59 VINITA LEYVA March 30, 2019 15:53
[2019-03-30 19:11] VITALS: BP 129/60; PULSE 87; RESP 17
--- NOTE | 2019-03-30 19:39 | CONS ---
Assessment/Plan Assessment/Plan Hospital Course (Demo Recall) 1. Status post fall question of her syncope: Per pt report it appears to be fall only and no actual syncope 2. Sick sinus syndrome some permanent pacemaker: Discussed with patient messenger copy, patient pacemaker is a [employer] device 3. Diabetes 4. Hypertension 5. History of parathyroid disorder We will check the EKG. We will have the pacemaker interrogated tomorrow to rule out any significant arrhythmia during the episodes. Diabetic and parathyroid management as per endocrinology consultants Outpatient cardiology follow-up with patient regular messenger copy Dr. Palacio ( d/w [facility] ) Thank you for his referral. We will continue to follow along with you SETH EVANS MD [facility] Consultation Date/Type/Reason Admit Date/Time March 28, 2019 at 15:07 Date of Consultation: March 30, 2019 Type of Consult Cardiology Reason for Consultation Interventional cardiology consultation note Chief complaint: s/p FALL Reason for consult: R/O arrhythmia History of present illness: Thank you for this referral. History was obtained from the patient from discussion with her daughter from discussion with the physicians. This is a pleasant 89-year-old female with history of sick sinus syndrome likely status post permanent pacemaker who was brought into the emergency room a few days ago after a fall. Patient is a poor historian. However she tells me that she tripped and she fell but could not tell me any details. There is no clear evidence of any syncope. However given her past cardiac history recommend to evaluate and rule out any arrhythmia as cause of the patient's fall. Patient with no chest pain or pressure. Patient has compression fracture has been treated medically apparently Allergies: Penicillin Medications were reviewed as per medical reconciliation sheet Family history: No reported history of early coronary artery disease Social history: No active smoking Past medical history: Sick sinus syndrome sternal permanent pacemaker. Patient messenger copy Dr. Palacio Hypertension, diabetes, hyperparathyroidism Review of system: Patient denies all others except for above-mentioned Date/Time of Note DATE: 03/30/19 TIME: 19:29 Past Medical History Home Meds Reported Medications [Thyroid] No Conflict Check, 1 TAB PO Q28D 03/27/19 Medications Current Medications IV Flush (NS 3 ml) 3 ml PER PROTOCOL IV Last administered on 03/30/19at 07:54; Admin Dose 3 ML; Start 03/27/19 at 19:30 Ibuprofen (Motrin) 600 mg Q6H PRN PO .PAIN 1-3; Start 03/27/19 at 19:30 Acetaminophen/ Hydrocodone Bitart ([place] (5/325)) 1 tab Q6H PRN PO .MOD PAIN 4- 6; Start 03/27/19 at 19:30 Morphine Sulfate (morphine) 2 mg Q4H PRN IV .SEVERE PAIN 7-10 Last administered on 03/28/19at 15:11; Admin Dose 2 MG; Start 03/27/19 at 19:30 Acetaminophen (Tylenol Tab) 650 mg Q6H PRN PO MILD PAIN(1-3)OR ELEVATED TEMP Last administered on 03/28/19at 03:45; Admin Dose 650 MG; Start 03/28/19 at 04:00 Linagliptin (Tradjenta) 5 mg DAILY PO Last administered on 03/30/19 07:53; Admin Dose 5 MG; Start 03/28/19 at 09:30 Insulin Aspart (Novolog Insulin Pen) NOVOLOG *MILD* ALGORITHM WITH MEALS BEDTIME SC Last administered on 03/30/19at 17:56; Admin Dose 1 UNIT; Start 03/28/19 at 12:00 Miscellaneous Information 1 ea NOTE XX ; Start 03/28/19 at 09:30 Glucose (Glutose) 15 gm Q15M PRN PO DECREASED GLUCOSE; Start 03/28/19 at 09:30 Glucose (Glutose) 22.5 gm Q15M PRN PO DECREASED GLUCOSE; Start 03/28/19 at 09:30 Dextrose (D50w Syringe) 25 ml Q15M PRN IV DECREASED GLUCOSE; Start 03/28/19 at 09:30 Dextrose (D50w Syringe) 50 ml Q15M PRN IV DECREASED GLUCOSE; Start 03/28/19 at 09:30 Glucagon (Glucagen) 1 mg Q15M PRN IM DECREASED GLUCOSE; Start 03/28/19 at 09:30 Glucose (Glutose) 15 gm Q15M PRN BUCCAL DECREASED GLUCOSE; Start 03/28/19 at 09:30 Sodium Chloride 1,000 ml @ 80 mls/hr [id number] IV Last administered on 03/30/19at 14:28; Admin Dose 80 MLS/HR; Start 03/30/19 at 14:30; Stop 03/31/19 at 02:59 Heparin Sodium (Porcine) (Heparin (5000 Units/1ml)) 5,000 unit BID SC ; Start 03/30/19 at 21:00 Allergies: Coded Allergies: Penicillins (Unverified Allergy, Unknown, 03/27/19) Past Surgical History Past Surgical Hx: other (mastectomy, ARMANDO-BSO, pacemaker placement) Social History Alcohol Use: none Smoking Status: Former smoker (4 cigs/d for 60 years, quit when pacemaker was placed) Drug Use: none Exam/Review of Systems Vital Signs Vitals Vital Signs Date Temp Pulse Resp B/P (MAP) Pulse Ox O2 O2 Flow FiO2 Time Delivery Rate 03/30/19 99.1 87 17 129/60 91 19:11 (83) 03/29/19 Nasal 14:03 Cannula 03/29/19 2.0 08:00 Intake and Output 03/29/19 03/29/19 03/30/19 1515:00 23:00 07:00 IntakeIntake Total 100 ml 120 ml OutputOutput Total 100 ml BalanceBalance 0 ml 120 ml Exam Exam General: no acute distress HEENT: NC/AT. pupils are equal. round. NECK: NO JVD. no stridor. CV: RRR. systolic murmur; no gallop or rubs. PULM: no wheezing or rhonchi. GI: SOFT, NT, ND, no rebound or guarding Extremity: trace B/L LE edema. no clubbing. neuro: awake and alert, OX3. Psych: calm and pleasant rectal: deferred Chest: Subtle permanent pacemaker on the left side Labs Result Diagram: 03/28/19 0540 03/28/19 0540 Results 24hrs Laboratory Tests Test 03/29/19 21:17 03/30/19 07:51 03/30/19 11:00 03/30/19 12:38 Bedside Glucose 139 124 134 Urine Color HOMER Urine Clarity CLOUDY A Urine pH 6.0 Urine Specific [place] 1.017 Urine Ketones 1+ H Urine Nitrite NEGATIVE Urine Bilirubin NEGATIVE Urine Urobilinogen 2+ H Urine Leukocyte Esterase TRACE A Urine Microscopic RBC 1 Urine Microscopic WBC 2 Urine Bacteria FEW A Urine Hemoglobin NEGATIVE Urine Glucose NEGATIVE Urine Total Protein NEGATIVE Test 03/30/19 17:51 Bedside Glucose 167 Medications Medications Current Medications IV Flush (NS 3 ml) 3 ml PER PROTOCOL IV Last administered on 03/30/19at 07:54; Admin Dose 3 ML; Start 03/27/19 at 19:30 Ibuprofen (Motrin) 600 mg Q6H PRN PO .PAIN 1-3; Start 03/27/19 at 19:30 Acetaminophen/ Hydrocodone Bitart ([place] (5/325)) 1 tab Q6H PRN PO .MOD PAIN 4- 6; Start 03/27/19 at 19:30 Morphine Sulfate (morphine) 2 mg Q4H PRN IV .SEVERE PAIN 7-10 Last administered on 03/28/19 15:11; Admin Dose 2 MG; Start 03/27/19 at 19:30 Acetaminophen (Tylenol Tab) 650 mg Q6H PRN PO MILD PAIN(1-3)OR ELEVATED TEMP Last administered on 03/28/19 03:45; Admin Dose 650 MG; Start 03/28/19 at 04:00 Linagliptin (Tradjenta) 5 mg DAILY PO Last administered on 03/30/19 07:53; Admin Dose 5 MG; Start 03/28/19 at 09:30 Insulin Aspart (Novolog Insulin Pen) NOVOLOG *MILD* ALGORITHM WITH MEALS BEDTIME SC Last administered on 03/30/19 17:56; Admin Dose 1 UNIT; Start 03/28/19 at 12:00 Miscellaneous Information 1 ea NOTE XX ; Start 03/28/19 at 09:30 Glucose (Glutose) 15 gm Q15M PRN PO DECREASED GLUCOSE; Start 03/28/19 at 09:30 Glucose (Glutose) 22.5 gm Q15M PRN PO DECREASED GLUCOSE; Start 03/28/19 at 09:30 Dextrose (D50w Syringe) 25 ml Q15M PRN IV DECREASED GLUCOSE; Start 03/28/19 at 09:30 Dextrose (D50w Syringe) 50 ml Q15M PRN IV DECREASED GLUCOSE; Start 03/28/19 at 09:30 Glucagon (Glucagen) 1 mg Q15M PRN IM DECREASED GLUCOSE; Start 03/28/19 at 09:30 Glucose (Glutose) 15 gm Q15M PRN BUCCAL DECREASED GLUCOSE; Start 03/28/19 at 09:30 Sodium Chloride 1,000 ml @ 80 mls/hr [id number] IV Last administered on 03/30/19 14:28; Admin Dose 80 MLS/HR; Start 03/30/19 at 14:30; Stop 03/31/19 at 02:59 Heparin Sodium (Porcine) (Heparin (5000 Units/1ml)) 5,000 unit BID SC ; Start 03/30/19 at 21:00 SETH EVANS MD March 30, 2019 19:39
[2019-03-30] MEDS: ACETAMINOPHEN 325 MG TAB PO PRN (21:16)
[2019-03-30] MEDS: HEPARIN 5,000 UNIT/1 ML VIAL SC SCH (21:18)
[2019-03-31 01:06] VITALS: BP 146/61; PULSE 71; RESP 18
[2019-03-31] MEDS: INSULIN ASPART [NOVOLOG] 3 ML PEN SC SCH ×4 (07:57→20:37)
[2019-03-31 08:15] VITALS: BP 124/58; PULSE 72; RESP 16
[2019-03-31] MEDS: LINAGLIPTIN 5 MG TABLET PO SCH (08:17)
[2019-03-31] MEDS: HEPARIN 5,000 UNIT/1 ML VIAL SC SCH ×2 (08:18→20:36)
--- NOTE | 2019-03-31 10:00 | RADRPT ---
Echocardiogram Report Patient Name: Julia RUTLEDGE ID: [id number] : 1930 (89y )Study Date: 03/31/2019 7:45:45 AM Gender: FAccession #: [id number] Tech: Savannah Lopez QING Location: [id number] Ref.Physician: SETH MONTEIRO Height(Cm): BSA: Weight(Kg): Quality: AdequateAccount #: Procedures: Echocardiographic Report: Transthoracic echocardiogram with complete 2D, M-Mode, and doppler examination. Indications: Syncope. Measurements: 2D/M Mode Doppler Measurement Value Normal Range Measurement Value Normal Range LVIDd 2D 3.4 [ 3.8 - 5.2 ] cm AV Peak Jose Migeul 1.7 [ 100.0 - 170.0 ] cm/sec LVIDs 2D 2.0 [ 2.2 - 3.5 ] cm AV Peak PG 11.0 [ 2.0 - 9.0 ] mmHg LVPWd 2D 1.1 [ 0.6 - 0.9 ] cm AI Peak PG 62.0 mmHg IVSd 2D 1.0 [ 0.6 - 0.9 ] cm AI Peak Jose Miguel 3.9 cm/sec AoR Diam 2D 2.7 [ 2.3 - 3.1 ] cm AI PHT 521.0 msec EDV 2D 48.1 [ 46.0 - 106.0 ] ml LVOT Peak Jose Miguel 0.9 [ 70.0 - 110.0 ] cm/sec ESV 2D 13.4 [ 14.0 - 42.0 ] ml LVOT Peak PG 3.0 [ 2.0 - 6.0 ] mmHg EF 2D 72.1 [ 54.0 - 74.0 ] percent MV E Peak Jose Miguel 0.5 [ 60.0 - 130.0 ] cm/sec LA Dimen 2D 2.8 [ 2.7 - 3.8 ] cm MV A Peak Jose Miguel 0.9 [ 100.0 - 120.0 ] cm/sec MV E/A 0.5 [ 0.8 - 1.5 ] ratio MV Decel Time 426 [ 104 - 258 ] msec Lat E` Jose Miguel 0.0 [ 10.0 - 15.0 ] cm/sec Lateral E/E` 9.6 [ 1.0 - 2.0 ] ratio MV E/A 0.5 [ 0.8 - 1.5 ] ratio Findings: Left Ventricle: Normal left ventricular systolic function. Normal left ventricular cavity size. Mild concentric left ventricular hypertrophy. Ejection fraction is visually estimated at 65 %. Tissue Doppler/Mitral Doppler indices are consistent with impaired relaxation (Stage I diastolic dysfunction). Right Ventricle: Normal right ventricular size. Normal right ventricular systolic function. Left Atrium: The left atrium is normal in size. Right Atrium: The right atrium is normal in size. Mitral Valve: Normal appearance and function of the mitral valve with trace physiologic regurgitation. Aortic Valve: Aortic valve not well visualized. No hemodynamically significant aortic stenosis by doppler. Aortic cusps appear mildly calcified. Mild aortic valve regurgitation. Tricuspid Valve: Normal appearance of the tricuspid valve. Unable to obtain RVSP due to minimal presence of tricuspid regurgitation. Pulmonic Valve: Pulmonic valve not well visualized. Pericardium: Normal pericardium with no significant pericardial effusion. Aorta: Normal aortic root. IVC: Normal size and normal respiratory collapse consistent with normal right atrial pressure. Conclusions: Normal left ventricular systolic function. Normal left ventricular cavity size. Mild concentric left ventricular hypertrophy. Ejection fraction is visually estimated at 65 %. Tissue Doppler/Mitral Doppler indices are consistent with impaired relaxation (Stage I diastolic dysfunction). The left atrium is normal in size. Normal appearance and function of the mitral valve with trace physiologic regurgitation. Aortic valve not well visualized. No hemodynamically significant aortic stenosis by doppler. Aortic cusps appear mildly calcified. Mild aortic valve regurgitation. Normal appearance of the tricuspid valve. Unable to obtain RVSP due to minimal presence of tricuspid regurgitation. Electronically Signed By: Seth Monteiro 2019-03-31 09:59:51 PDT
--- NOTE | 2019-03-31 10:44 | CONS ---
Consult Date/Type/Reason Admit Date/Time March 28, 2019 at 15:07 Initial Consult Date 03/30/19 Type of Consultation: cv Requesting Provider: BREANNA BLOOD MD Date/Time of Note DATE: 03/31/19 TIME: 10:42 Subjective Cardiology follow-up progress note Subjective: Discussed with staff. Patient with no chest pain or pressure no syncope no presyncope. Still has back pain Objective: General: no acute distress HEENT: NC/AT. pupils are equal. round. NECK: NO JVD. no stridor. CV: RRR. systolic murmur; no gallop or rubs. PULM: no wheezing or rhonchi. GI: SOFT, NT, ND, no rebound or guarding Extremity: trace B/L LE edema. no clubbing. neuro: awake and alert, OX3. Psych: calm and pleasant rectal: deferred Chest: S/p permanent pacemaker on the left side Echocardiogram shows: Normal left ventricular systolic function. Normal left ventricular cavity size. Mild concentric left ventricular hypertrophy. Ejection fraction is visually estimated at 65 %. Tissue Doppler/Mitral Doppler indices are consistent with impaired relaxation (Stage I diastolic dysfunction). The left atrium is normal in size. Normal appearance and function of the mitral valve with trace physiologic regurgitation. Aortic valve not well visualized. No hemodynamically significant aortic stenosis by doppler. Aortic cusps appear mildly calcified. Mild aortic valve regurgitation. Normal appearance of the tricuspid valve. Unable to obtain RVSP due to minimal presence of tricuspid regurgitation. Objective Vitals Vital Signs Date Temp Pulse Resp B/P (MAP) Pulse Ox O2 O2 Flow FiO2 Time Delivery Rate 03/31/19 98.3 72 16 124/58 96 08:15 (80) 03/29/19 Nasal 14:03 Cannula 03/29/19 2.0 08:00 Intake and Output 03/30/19 03/30/19 03/31/19 1414:59 22:59 06:59 IntakeIntake Total 760 ml 560 ml 1000 ml BalanceBalance 760 ml 560 ml 1000 ml Results/Medications Result Diagram: 03/31/19 0434 03/31/19 0435 Results 24 hrs Laboratory Tests Test 03/30/19 11:00 03/30/19 12:38 03/30/19 17:51 03/30/19 21:15 Urine Color HOMER Urine Clarity CLOUDY A Urine pH 6.0 Urine Specific [place] 1.017 Urine Ketones 1+ H Urine Nitrite NEGATIVE Urine Bilirubin NEGATIVE Urine Urobilinogen 2+ H Urine Leukocyte Esterase TRACE A Urine Microscopic RBC 1 Urine Microscopic WBC 2 Urine Bacteria FEW A Urine Hemoglobin NEGATIVE Urine Glucose NEGATIVE Urine Total Protein NEGATIVE Bedside Glucose 134 167 128 Test 03/31/19 04:34 03/31/19 04:35 03/31/19 07:47 White Blood Count 8.4 # Red Blood Count 4.51 Hemoglobin 13.6 Hematocrit 41.2 Mean Corpuscular Volume 91.4 Mean Corpuscular 30.2 Hemoglobin Mean Corpuscular 33.0 Hemoglobin Concent Red Cell Distribution 13.7 Width Platelet Count 290 Mean Platelet Volume 10.1 Immature Granulocytes % 1.200 H Neutrophils % 65.5 Lymphocytes % 18.9 Monocytes % 11.8 H Eosinophils % 2.2 Basophils % 0.4 Nucleated Red Blood 0.0 Cells % Immature Granulocytes # 0.100 H Neutrophils # 5.5 Lymphocytes # 1.6 Monocytes # 1.0 H Eosinophils # 0.2 Basophils # 0.0 Nucleated Red Blood 0.0 Cells # Sodium Level 138 Potassium Level 4.4 Chloride Level 108 Carbon Dioxide Level 23 Anion Gap 7 Blood Urea Nitrogen 13 Creatinine 0.53 Est Glomerular Filtrat Rate mL/min Glucose Level 122 Calcium Level 9.3 Magnesium Level 2.2 Bedside Glucose 119 Home Meds Reported Medications [Thyroid] No Conflict Check, 1 TAB PO Q28D 03/27/19 Medications Current Medications IV Flush (NS 3 ml) 3 ml PER PROTOCOL IV Last administered on 03/30/19at 07:54; Admin Dose 3 ML; Start 03/27/19 at 19:30 Ibuprofen (Motrin) 600 mg Q6H PRN PO .PAIN 1-3; Start 03/27/19 at 19:30 Acetaminophen/ Hydrocodone Bitart ([place] (5/325)) 1 tab Q6H PRN PO .MOD PAIN 4- 6; Start 03/27/19 at 19:30 Morphine Sulfate (morphine) 2 mg Q4H PRN IV .SEVERE PAIN 7-10 Last administered on 03/28/19at 15:11; Admin Dose 2 MG; Start 03/27/19 at 19:30 Acetaminophen (Tylenol Tab) 650 mg Q6H PRN PO MILD PAIN(1-3)OR ELEVATED TEMP Last administered on 03/30/19at 21:16; Admin Dose 650 MG; Start 03/28/19 at 04:00 Linagliptin (Tradjenta) 5 mg DAILY PO Last administered on 03/31/19at 08:17; Admin Dose 5 MG; Start 03/28/19 at 09:30 Insulin Aspart (Novolog Insulin Pen) NOVOLOG *MILD* ALGORITHM WITH MEALS BEDTIME SC Last administered on 03/30/19at 17:56; Admin Dose 1 UNIT; Start 03/28/19 at 12:00 Miscellaneous Information 1 ea NOTE XX ; Start 03/28/19 at 09:30 Glucose (Glutose) 15 gm Q15M PRN PO DECREASED GLUCOSE; Start 03/28/19 at 09:30 Glucose (Glutose) 22.5 gm Q15M PRN PO DECREASED GLUCOSE; Start 03/28/19 at 09:30 Dextrose (D50w Syringe) 25 ml Q15M PRN IV DECREASED GLUCOSE; Start 03/28/19 at 09:30 Dextrose (D50w Syringe) 50 ml Q15M PRN IV DECREASED GLUCOSE; Start 03/28/19 at 09:30 Glucagon (Glucagen) 1 mg Q15M PRN IM DECREASED GLUCOSE; Start 03/28/19 at 09:30 Glucose (Glutose) 15 gm Q15M PRN BUCCAL DECREASED GLUCOSE; Start 03/28/19 at 09:30 Heparin Sodium (Porcine) (Heparin (5000 Units/1ml)) 5,000 unit BID SC Last administered on 03/31/19at 08:18; Admin Dose 5,000 UNIT; Start 03/30/19 at 21:00 Assessment/Plan Hospital Course (Demo Recall) 1. Status post fall vs syncope: Per pt report it appears to be fall only and no actual syncope 2. 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 Diabetes 4. Hypertension 5. History of parathyroid disorder We will interrogate the pacemaker today and personally reviewed Diabetic and parathyroid management as per endocrinology consultants Outpatient cardiology follow-up with patient regular paper and pulp [employer] worker Dr. Pia LOVE planning today after pacemaker check if okay from internal medicine standpoint Thank you for his referral. We will continue to follow along with you SETH EVANS MD [facility] SETH EVANS MD March 31, 2019 10:44
--- NOTE | 2019-03-31 11:26 | DS ---
Date/Time of Note Date/Time of Note DATE: 03/31/19 TIME: 11:26 Discharge Summary Admission/Discharge Info Admit Date/Time March 28, 2019 at 15:07 Discharge Date/Time Discharge Diagnosis 88 yo female with h/o hyperparathyroidsm and with PPM who presented after a fa ll and found to have 1. L3 fracture on CT: TLSO brace 2. Hyperparathyroid with hypercalcemia: - s/p bisphosphonate 3. UTI 4. R knee OA 5. poor apetite -may be related to possible UTI 6. Chronic osteoporosis 7. Progression from prediabetes to type 2 diabetes with A1c of 7.4 . Patient Condition: Stable Consults Neurosurgery: Rodrigo Rosenberg MD Endocrinology: Pete Linton MD Cardiology: José Miguel Monteiro MD . Hospital Course 89-year-old female who had presented after what was thought to be a mechanical fall with complaints of lower back pain. And inability to walk. The patient on CT scan was found to have an L3 fracture but this was thought to be subacute. She was seen by neurosurgery and deemed nonsurgical. Recommendations were for a TLSO brace and clinic follow-up. Patient has a history of hyperparathyroidism as well as a pacemaker placement. She was seen by endocrinology for continued management of her hyperparathyroidism and also by cardiology and her pacemaker was interrogated without abnormality. She was found to also have a urinary trac t infection which could have contributed to the original fall. Patient was seen by physical therapy she was noted to have significant right knee pain limiting ambulation. Based on their assessment, patient is being [facility] for continued [facility] and for completion of therapy of a urinary tract infection. Prior to admission patient resided by herself with people checking on her, at this time her family is at bedside, I have advised him that patient may not be able to live by herself anymore. For now she will be sent to rehab, and further disposition depends on how she does. She has been evaluated by myself, and if cleared by cardiology safe to be discharged in stable condition. . Home Meds Reported Medications [Thyroid] No Conflict Check, 1 TAB PO Q28D 03/27/19 Follow-up Plan Follow-up with the treasury agent Dr. Delatorre Also follow-up with the neurosurgeon/back surgeon as below. He recommended to need a repeat x-ray in 6 weeks especially if your pain is not completely resolved. Wear your TLSO brace anytime you upright or weightbearing until the pain is resolved as well. Also follow-up with your primary care doctor in the next 1 week to notify them of the events during your hospitalization as well as changes we have made to your medications. . Primary Care Provider Not On Staff Doctor Time spent on discharge: > 30 minutes Pending Labs Laboratory Tests Test 03/30/19 12:38 03/30/19 17:51 03/30/19 21:15 03/31/19 04:34 Bedside 134 167 128 Glucose mg/dL (70-220) mg/dL (70-220) mg/dL (70-220) White Blood 8.4 Count 10^3/ul (4.8-1 0.8) Red Blood 4.51 Count 10^6/ul (4.20- 5.40) Hemoglobin 13.6 g/dl (12.0-16. 0) Hematocrit 41.2 % (37.0-47.0) Mean 91.4 Corpuscular fl (82.0-101.0 Volume ) Mean 30.2 Corpuscular pg (29.0-33.0) Hemoglobin Mean 33.0 Corpuscular g/dl (32.0-37. Hemoglobin Conc 0) ent Red Cell 13.7 Distribution % (11.5-14.5) Width Platelet Count 290 10^3/UL (140-4 15) Mean Platelet 10.1 Volume fl (7.4-10.4) Immature 1.200 Granulocytes % % (0.001-0.429 ) Neutrophils % 65.5 % (39.0-77.0) Lymphocytes % 18.9 % (15.0-51.0) Monocytes % 11.8 % (0.0-11.0) Eosinophils % 2.2 % (0.0-7.0) Basophils % 0.4 % (0.0-2.0) Nucleated Red 0.0 Blood Cells % /100WBC (0.0-0 .0) Immature 0.100 Granulocytes # 10^3/ul (0.0-0 .031) Neutrophils # 5.5 10^3/ul (1.6-7 .5) Lymphocytes # 1.6 10^3/ul (0.8-2 .9) Monocytes # 1.0 10^3/ul (0.3-0 .9) Eosinophils # 0.2 10^3/ul (0.0-0 .5) Basophils # 0.0 10^3/ul (0.0-0 .1) Nucleated Red 0.0 Blood Cells # 10^3/ul (0.0-0 .0) Test 03/31/19 04:35 03/31/19 07:47 Sodium Level 138 mmol/L (135-144 ) Potassium 4.4 Level mmol/L (3.5-5.1 ) Chloride Level 108 mmol/L (97-110) Carbon Dioxide 23 Level mmol/L (21-31) Anion Gap 7 (5-13) Blood Urea 13 mg/dl (7-20) Nitrogen Creatinine 0.53 mg/dl (0.44-1.0 0) Est Glomerular mL/min (>60) Filtrat Rate mL/min Glucose Level 122 mg/dl (70-220) Calcium Level 9.3 mg/dl (8.4-10.2 ) Magnesium 2.2 Level mg/dl (1.7-2.5) Bedside 119 Glucose mg/dL (70-220) VINITA LEYVA March 31, 2019 11:26
[2019-03-31] MEDS ORDERED: CEFTRIAXONE 1 GM/50 ML (PMX) 50 ML IVPB ONE (11:30)
[2019-03-31] MEDS ORDERED: MAGNESIUM CITRATE 300 ML BTL PO ONE (13:00)
[2019-03-31] MEDS ORDERED: LACT1CAP28 PO (14:51)
[2019-03-31] MEDS ORDERED: AMOX1TAB10 PO (14:51)
[2019-03-31] MEDS ORDERED: DOCU-144 PO (14:51)
[2019-03-31] MEDS ORDERED: LINA5TAB PO (14:51)
[2019-03-31 15:18] VITALS: BP 138/62; PULSE 89; RESP 16
--- NOTE | 2019-03-31 15:59 | RADRPT ---
Vent Rate: 70 bpm RR Interval: 846 msec [place] Interval: 203 msec QRS Duration: 137 msec QT Interval: 420 msec QTC Interval: 457 msec P-R-T [place]: 61 - -56 - 21 degrees sinus Right bundle branch block...QRSd>120, terminal axis(90,270) Inferior infarct, old...Q >35mS, II III aVF Electronically Signed By: Pete Castro
[2019-03-31] MEDS: ACETAMINOPHEN 325 MG TAB PO PRN (18:31)
[2019-03-31 19:09] VITALS: BP 143/63; PULSE 87; RESP 18
[2019-03-31] MEDS ORDERED: LACTOBACILLUS RHAMNOSUS CAP PO SCH (21:00)
[2019-03-31] MEDS ORDERED: DOCUSATE SODIUM 100 MG CAP PO SCH (21:00)
[2019-03-31 21:24] VITALS: BP 109/51; PULSE 65; RESP 17
== END 2019-03-31 22:30 | DRG 543 ==
LOC: E/R 14:18 → 2NE 17:34 → SUATTDRO 18:14 → OBSVTOIN 03-28 15:07
PROVIDERS: ADMIT Internal Medicine; ATTEND Family Medicine
DX: M80.08XA Age-related osteoporosis with current pathological fracture, vertebra(e), initial encounter for fracture (principal); N39.0 Urinary tract infection, site not specified; E21.0 Primary hyperparathyroidism; I10 Essential (primary) hypertension; E11.9 Type 2 diabetes mellitus without complications; M17.11 Unilateral primary osteoarthritis, right knee; Z95.0 Presence of cardiac pacemaker; Z87.891 Personal history of nicotine dependence; Z88.0 Allergy status to penicillin; Z85.3 Personal history of malignant neoplasm of breast
CPT/HCPCS: 71100; 72131; 73562; 80048; 80053; 81001; 82962; 83036; 83735; 85025; 85610; 87086; 93005; 93306; 96372; 97110; 97116; 97162; 97165; 97530; G0378; J0696; J1170; J1644; J1815; J2270; J3489; J7030; L0462

== ENCOUNTER 2019-06-20 08:08 | Inpatient (IN) | payer OTHER ==
[~2019-06-20] VITALS: Ht 152.4 cm; Wt 66.4 kg
[~2019-06-20 08:08] MED LIST: AMOX1TAB10 PO; APIX2.5T PO; APIX5TAB PO; DOCU-144 PO; FURO20TA3 PO; LACT1CAP28 PO; LINA5TAB PO; THYROID PO
--- NOTE | 2019-06-20 08:26 | ERD ---
ER Documentation Chief Complaint Chief Complaint LT LEG SWELLING/REDNESS X3 DAYS HPI 89-year-old woman brought in by EMS from [facility] for left leg redness and swelling x3 days. Daughter who is at the bedside states the patient stopped ambulating about a week ago due to generalized weakness, but even at her baseline she would only ambulate once or twice daily to the kitchen or bathroom and then back to bed. Patient has no history of blood clots, no recent trauma or falls, no fevers or chills, no complaints of chest pain or shortness of breath. Patient was transported here by EMS without further complications ROS All systems reviewed and are negative except as per history of present illness. Medications Home Meds Reported Medications Furosemide* (Furosemide*) 20 Mg Tablet, 20 MG PO DAILY, #60 TAB PATIENT TAKE NEEDED 06/20/19 Discontinued Reported Medications [Thyroid] No Conflict Check, 1 TAB PO Q28D 03/27/19 Discontinued Scripts Amoxicillin/Potassium Clav (Amox-Clav 875-125 mg Tablet) 875-125 mg Tab, 1 TAB PO BID, #8 TAB Prov:AUTUMNKALINATITO M. 03/31/19 Linagliptin (TRADJENTA) 5 Mg Tablet, 5 MG PO DAILY, #30 TAB Prov:AUTUMN,BOLATITO M. 03/31/19 Lactobacillus Rhamnosus GG (Culturelle) 1 Each Capsule, 1 CAP PO BID, #60 CAP Prov:AUTUMN,BOLATITO M. 03/31/19 Docusate Sodium* (Colace*) 100 Mg Capsule, 100 MG PO BID, #60 CAP Prov:AUTUMNKALINATITO M. 03/31/19 Allergies Allergies: Coded Allergies: Penicillins (Unverified Allergy, Unknown, 06/20/19) PMhx/Soc Permanent pacemaker, hyperparathyroidism, hypertension, recent L3 spine fracture, bedbound state due to chronic deconditioning, history of mastectomy but denies breast carcinoma History of Surgery: Yes (HYSTERECTOMY,MASTECTOMY (RIGHT), PM) Anesthesia Reaction: No Hx Neurological Disorder: No Hx Respiratory Disorders: Yes (PNA) Hx Cardiac Disorders: Yes (HTN) Hx Psychiatric Problems: No Hx Miscellaneous Medical Probl: No Hx Alcohol Use: No Hx Substance Use: No Hx Tobacco Use: No FmHx Family History: No diabetes Physical Exam Vitals Vital Signs Date Temp Pulse Resp B/P (MAP) Pulse Ox O2 O2 Flow FiO2 Time Delivery Rate 06/20/19 98.2 89 16 128/59 94 08:17 (82) Physical Exam GENERAL: Well-developed, well-nourished, well-hydrated, in no apparent distress, looks nontoxic in appearance NEURO: Alert and oriented 2, able to answer simple questions and follow simple commands, no focal deficits, paresis to the lower extremities bilaterally CARDIAC: Regular rate and rhythm, no murmurs rubs or gallops LUNGS: Clear bilaterally no wheezing crackles or stridor SKIN: Warm and dry to touch, mild erythema to the left lower extremity, no hematomas contusions or abrasions EXTREMITIES: 2+ pitting edema in the left lower extremity with lower leg erythema, right lower leg appears normal, distal pulses equal bilateral PSYCH: Normal affect without agitation or irritability Result Diagram: 06/20/1942 06/20/19941 Results 24 hrs Current Medications Medications Dose Sig/Justin Start Time Status Last (Trade) Ordered Route PRN Stop Time Admin Dose Reason Admin Sodium 1,000 ml @ Q1H STAT 06/20/19 DC 06/20/19 Chloride 1,000 mls/hr IV 09:14 09:52 06/20/19 10:13 Procedures/MDM IV line was established patient was placed on radiation monitor rhythm strip revealed a sinus rhythm at about 80 bpm with upright P and T waves. Patient was afebrile One AP view of the chest performed, read by me reveals no acute infiltrates, normal mediastinum, sharp costophrenic and cardiac borders, no air under the diaphragm. Otherwise unremarkable chest x-ray. EKG performed, read by me revealed a normal sinus rhythm at 77 bpm, left axis deviation, left bundle branch block, no concerning ST elevations or depressions noted. Doppler ultrasound left lower extremity was performed revealing extensive femoral vein thrombosis. Please review radiologist dictation for full report. I administered 1 L normal saline IV and enoxaparin 70 mg subcutaneous injection CBC and electrolytes were normal, liver function tests are normal, troponin was negative Patient will be admitted to telemetry setting for continued anticoagulation therapy. Departure Diagnosis: Primary Impression: Acute DVT (deep venous thrombosis) DVT location: lower extremity Affected thrombotic vein of extremity: femoral Laterality: left Qualified Codes: I82.412 - Acute embolism and thrombosis of left femoral vein Condition: TUAN Mason MD Jun 20, 2019 08:26
[2019-06-20] MEDS ORDERED: SOD CHLORIDE 0.9% 1,000 ML IV STA (09:14)
[2019-06-20] MEDS ORDERED: ENOXAPARIN 80 MG/0.8 ML SYG SC SCH (09:30)
[2019-06-20 11:15] VITALS: Ht 152.4 cm; Wt 66.4 kg
[2019-06-20 11:39] VITALS: BP 139/62; PULSE 72; RESP 18
--- NOTE | 2019-06-20 12:46 | HP ---
Date/Time of Note Date/Time of Note DATE: 06/20/19 TIME: 12:39 Assessment/Plan VTE Prophylaxis SCD contraindicated: DVT Pharmacological prophylaxis: fondaparinux Lines/Catheters [facility] Saline Lock Assessment/Plan Problems: (1) Acute DVT (deep venous thrombosis) Status: Acute Comment: Patient has been admitted and placed on Lovenox therapy as an anticoagulant. She will be on this and then can be transitioned over to a drug such as Eliquis once fully stabilized. Given her advanced age she is a little bit of a risk for anticoagulation we may need to rethink this and put in an IVC filter but I do not alleviate out with that Qualifiers: DVT location: lower extremity Affected thrombotic vein of extremity: f emoral Laterality: left Qualified Codes: I82.412 - Acute embolism and thrombosis of left femoral vein (2) Sick sinus syndrome Status: Chronic Comment: Stable at this time (3) Presence of cardiac pacemaker Status: Chronic Comment: Stable and operational (4) Essential (primary) hypertension Status: Chronic Comment: Adequate control (5) Grade I diastolic dysfunction Status: Chronic Comment: Noted. Control blood pressure and pulse (6) Type 2 diabetes mellitus without complications Status: Chronic Comment: Stable, continue treatment Qualifiers: Diabetes mellitus group home insulin use: without superintendent container terminal use Qualified Codes: E11.9 - Type 2 diabetes mellitus without complications (7) Primary hyperparathyroidism Status: Chronic Comment: She has not gone for treatment for this. Her best bet here would be to add in Sensipar to help control the hypercalcemia (8) Personal history of malignant neoplasm of breast Status: Chronic Comment: Noted. No evidence of recurrence Result Diagram: 06/20/19 0942 06/20/19 0942 Results 24hrs Laboratory Tests Test 06/20/19 09:42 White Blood Count 9.0 Red Blood Count 4.67 Hemoglobin 14.2 Hematocrit 43.4 Mean Corpuscular Volume 92.9 Mean Corpuscular Hemoglobin 30.4 Mean Corpuscular Hemoglobin Concent 32.7 Red Cell Distribution Width 14.0 Platelet Count 313 Mean Platelet Volume 9.6 Immature Granulocytes % 0.800 H Neutrophils % 71.3 Lymphocytes % 15.2 Monocytes % 10.1 Eosinophils % 2.0 Basophils % 0.6 Nucleated Red Blood Cells % 0.0 Immature Granulocytes # 0.070 H Neutrophils # 6.4 Lymphocytes # 1.4 Monocytes # 0.9 Eosinophils # 0.2 Basophils # 0.1 Nucleated Red Blood Cells # 0.0 Sodium Level 139 Potassium Level 4.7 Chloride Level 103 Carbon Dioxide Level 30 Anion Gap 6 Blood Urea Nitrogen 11 Creatinine 0.65 Est Glomerular Filtrat Rate mL/min Glucose Level 141 Calcium Level 11.1 H Total Bilirubin 0.8 Direct Bilirubin 0.00 Indirect Bilirubin 0.8 Aspartate Amino Transf (AST/SGOT) 42 Alanine Aminotransferase (ALT/SGPT) 44 Alkaline Phosphatase 112 Troponin I < 0.012 Total Protein 7.3 Albumin 3.6 Globulin 3.70 H Albumin/Globulin Ratio 0.97 Lipase 61 HPI/ROS Admit Date/Time Admit Date/Time Jun 20, 2019 at 09:29 Hx of Present Illness This is a second recent [facility] admission for this 89-year-old right-handed female. She was here roughly 2 months ago with a vertebral compression fracture in the setting of primary hyperparathyroidism. She had been in her usual state of health with limited ambulation after the vertebral fracture. She had not had any extensive trips, car rides, plane rides. In addition she has not been smoking. She does have a remote history of a right breast carcinoma without known recurrence. Roughly a week ago she developed the onset of lower extremity swelling and laterally with some discomfort. She presented to the emergency room where she was diagnosed as having extensive deep vein thrombosis. ROS Constitutional: no complaints (Eyes fevers chills or sweats) Eyes: no complaints ENT: no complaints Respiratory: no complaints (Denies cough shortness of breath pleuritic pain etc.) Cardiovascular: no complaints (No chest pain no palpitations no orthopnea no PND, please note that she has a pacemaker) Gastrointestinal: no complaints Genitourinary: no complaints Musculoskeletal: back pain Skin: no complaints Endocrine: no complaints PMH/Family/Social Past Medical History Medical History: cancer (3 of right breast carcinoma), diabetes (Type 2 diabe anastacia), other (Primary hyperparathyroidism with vertebral compression fracture; history of sick sinus syndrome with placement of pacemaker device [place]:) Medications Current Medications Enoxaparin Sodium (Lovenox) 70 mg ONCE SC Last administered on 06/20/19at 09:53; Admin Dose 70 MG; Start 06/20/19 at 09:30 Coded Allergies: Penicillins (Unverified Allergy, Unknown, 06/20/19) Past Surgical History Past Surgical Hx: other (Cardiac pacemaker) Family History Significant Family History: COPD, diabetes Social History Alcohol Use: none Smoking Status: Former smoker Drug Use: none Exam/Review of Systems Vital Signs Vitals Vital Signs Date Temp Pulse Resp B/P (MAP) Pulse Ox O2 O2 Flow FiO2 Time Delivery Rate 06/20/19 98.1 72 18 139/62 99 11:39 (87) 06/20/19 Room Air 09:57 Exam Constitutional: alert (Oriented to person and place and time, however there are limitations with calculations etc.) Head: normocephalic, atraumatic Eyes: nl conjunctiva, EOMI, nl lids Neck: supple, non-tender Respiratory: clear to auscultation, normal air movement Cardiovascular: regular rate and rhythm, nl pulses, other (Subcutaneous pacemaker left upper anterior chest) Gastrointestinal: soft, nl liver, spleen, non-tender Extremities: other (Lower extremity swollen with a positive Homans sign and palpable cord) CARMEN GRIFFITHS MD Jun 20, 2019 12:46
[2019-06-20] MEDS ORDERED: BISACODYL 10 MG SUPP PR PRN (13:00)
[2019-06-20] MEDS ORDERED: NACL 0.9% 3 ML SYG IV SCH (13:00)
[2019-06-20] MEDS ORDERED: LORAZEPAM 0.5 MG TAB PO PRN (13:00)
[2019-06-20] MEDS ORDERED: DOCUSATE SODIUM 100 MG CAP PO PRN (13:00)
[2019-06-20] MEDS ORDERED: ONDANSETRON 4 MG TAB PO PRN (13:00)
[2019-06-20] MEDS ORDERED: HYDROCODONE/APAP (5/325) TAB PO PRN (13:00)
[2019-06-20] MEDS ORDERED: ACETAMINOPHEN 325 MG TAB PO PRN (13:00)
[2019-06-20] MEDS: ACCU-CHEK XX SCH ×3 (13:34→20:00)
[2019-06-20] MEDS: LINAGLIPTIN 5 MG TABLET PO SCH (13:34)
[2019-06-20 15:10] VITALS: BP 130/63; PULSE 92; RESP 18
[2019-06-20] MEDS: CINACALCET 30 MG TAB PO SCH (17:14)
[2019-06-20 19:08] VITALS: BP 136/64; PULSE 93; RESP 18
[2019-06-20] MEDS: FAMOTIDINE 20 MG TAB PO SCH (21:06)
[2019-06-20] MEDS: ENOXAPARIN 80 MG/0.8 ML SYG SC SCH (21:14)
[2019-06-21] VITALS: BP 134/61; PULSE 81; RESP 18
[2019-06-21 04:00] VITALS: BP 163/72; PULSE 71; RESP 20
[2019-06-21 07:36] VITALS: BP 138/62; PULSE 73; RESP 18
[2019-06-21] MEDS: ACCU-CHEK XX SCH ×6 (08:14→20:00)
[2019-06-21] MEDS: CINACALCET 30 MG TAB PO SCH (09:09)
[2019-06-21] MEDS: LINAGLIPTIN 5 MG TABLET PO SCH (09:09)
[2019-06-21] MEDS: FAMOTIDINE 20 MG TAB PO SCH ×2 (09:09→20:23)
[2019-06-21] MEDS: ENOXAPARIN 80 MG/0.8 ML SYG SC SCH ×2 (09:17→20:27)
[2019-06-21 11:38] VITALS: BP 126/60; PULSE 78; RESP 17
--- NOTE | 2019-06-21 13:55 | PN ---
Date/Time of Note Date/Time of Note DATE: 06/21/19 TIME: 13:50 Assessment/Plan VTE Prophylaxis Risk score (from [facility])>0 risk: 5 SCD applied (from [facility]): No SCD contraindicated: DVT Pharmacological prophylaxis: fondaparinux Lines/Catheters IV [facility]from [facility] Saline Lock Urinary Cath still in place: No Assessment/Plan Problems: (1) Acute DVT (deep venous thrombosis) Status: Acute Comment: She remains on injectable Lovenox will be transitioned over in roughly 24 hours to 48 hours to an novel oral anticoagulant Qualifiers: DVT location: lower extremity Affected thrombotic vein of extremity: femoral Laterality: left Qualified Codes: I82.412 - Acute embolism and thrombosis of left femoral vein (2) Type 2 diabetes mellitus without complications Status: Chronic Comment: Good glycemic control under the present circumstances Qualifiers: Diabetes mellitus terminal press operator insulin use: without terminal press operator use Qualified Codes: E11.9 - Type 2 diabetes mellitus without complications (3) Essential (primary) hypertension Status: Chronic Comment: Adequate control (4) Sick sinus syndrome Status: Chronic Comment: Noted and controlled with pacemaker and medication therapy (5) Presence of cardiac pacemaker Status: Chronic Comment: Operational (6) Personal history of malignant neoplasm of breast Status: Chronic Comment: Noted (7) Primary hyperparathyroidism Status: Chronic Comment: On Sensipar and tolerating this (8) 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 Qualifiers: Encounter type: subsequent encounter Fracture healing: with routine healing Qualified Codes: M80.88XD - Other osteoporosis with current pathological fracture, vertebra(e), subsequent encounter for fracture with routine healing Result Diagram: 06/21/19 0513 06/21/19 0513 Results 24hrs Laboratory Tests Test 06/20/19 17:57 06/20/19 21:05 06/21/19 05:13 06/21/19 08:10 Bedside Glucose 137 113 107 White Blood Count 9.1 Red Blood Count 4.18 L Hemoglobin 12.7 Hematocrit 39.0 Mean Corpuscular 93.3 Volume Mean Corpuscular 30.4 Hemoglobin Mean Corpuscular 32.6 Hemoglobin Concent Red Cell 14.1 Distribution Width Platelet Count 311 Mean Platelet Volume 10.0 Immature 1.200 H Granulocytes % Neutrophils % 66.0 Lymphocytes % 20.2 Monocytes % 10.3 Eosinophils % 1.8 Basophils % 0.5 Nucleated Red Blood 0.0 Cells % Immature 0.110 H Granulocytes # Neutrophils # 6.0 Lymphocytes # 1.8 Monocytes # 0.9 Eosinophils # 0.2 Basophils # 0.1 Nucleated Red Blood 0.0 Cells # Sodium Level 140 Potassium Level 4.5 Chloride Level 106 Carbon Dioxide Level 28 Anion Gap 6 Blood Urea Nitrogen 13 Creatinine 0.61 Est Glomerular Filtrat Rate mL/min Glucose Level 120 Hemoglobin A1c 6.4 H Calcium Level 10.5 H Magnesium Level 1.9 Total Bilirubin 0.6 Direct Bilirubin 0.00 Indirect Bilirubin 0.6 Aspartate Amino 29 Transf (AST/SGOT) Alanine 38 Aminotransferase (AL T/SGPT) Alkaline Phosphatase 99 Total Protein 6.3 # Albumin 3.0 L Globulin 3.30 H Albumin/Globulin 0.90 Ratio Test 06/21/19 11:07 Bedside Glucose 146 Subjective 24 Hr Interval Summary Free Text/Dictation Patient reports no shortness of breath no chest pain no cough Constitutional: no complaints Respiratory: no complaints Cardiovascular: no complaints Gastrointestinal: no complaints Musculoskeletal: other (Some leg pain) Exam/Review of Systems Exam Vitals Vital Signs Date Temp Pulse Resp B/P (MAP) Pulse Ox O2 O2 Flow FiO2 Time Delivery Rate 06/21/19 98.1 78 17 126/60 95 11:38 (82) 06/21/19 2.0 08:00 06/21/19 Nasal 04:00 Cannula Intake and Output 06/20/19 06/20/19 06/21/19 1515:00 23:00 07:00 IntakeIntake Total 240 ml 800 ml 600 ml BalanceBalance 240 ml 800 ml 600 ml Constitutional: alert, oriented Respiratory: clear to auscultation, normal air movement Cardiovascular: regular rate and rhythm, nl pulses Gastrointestinal: soft, nl liver, spleen, non-tender Extremities: other (With positive cord) Results Results 24hrs Laboratory Tests Test 06/20/19 17:57 06/20/19 21:05 06/21/19 05:13 06/21/19 08:10 Bedside Glucose 137 113 107 White Blood Count 9.1 Red Blood Count 4.18 L Hemoglobin 12.7 Hematocrit 39.0 Mean Corpuscular 93.3 Volume Mean Corpuscular 30.4 Hemoglobin Mean Corpuscular 32.6 Hemoglobin Concent Red Cell 14.1 Distribution Width Platelet Count 311 Mean Platelet Volume 10.0 Immature 1.200 H Granulocytes % Neutrophils % 66.0 Lymphocytes % 20.2 Monocytes % 10.3 Eosinophils % 1.8 Basophils % 0.5 Nucleated Red Blood 0.0 Cells % Immature 0.110 H Granulocytes # Neutrophils # 6.0 Lymphocytes # 1.8 Monocytes # 0.9 Eosinophils # 0.2 Basophils # 0.1 Nucleated Red Blood 0.0 Cells # Sodium Level 140 Potassium Level 4.5 Chloride Level 106 Carbon Dioxide Level 28 Anion Gap 6 Blood Urea Nitrogen 13 Creatinine 0.61 Est Glomerular Filtrat Rate mL/min Glucose Level 120 Hemoglobin A1c 6.4 H Calcium Level 10.5 H Magnesium Level 1.9 Total Bilirubin 0.6 Direct Bilirubin 0.00 Indirect Bilirubin 0.6 Aspartate Amino 29 Transf (AST/SGOT) Alanine 38 Aminotransferase (AL T/SGPT) Alkaline Phosphatase 99 Total Protein 6.3 # Albumin 3.0 L Globulin 3.30 H Albumin/Globulin 0.90 Ratio Test 06/21/19 11:07 Bedside Glucose 146 Medications Medication Current Medications IV Flush (NS 3 ml) 3 ml PER PROTOCOL IV ; Start 06/20/19 at 13:00 Lorazepam (Ativan) 0.5 mg Q8H PRN PO .ANXIETY; Start 06/20/19 at 13:00 Ondansetron HCl (Zofran Tab) 4 mg Q6H PRN PO NAUSEA/VOMITING; Start 06/20/19 at 13:00 Acetaminophen (Tylenol Tab) 650 mg Q6H PRN PO .PAIN 1-3 OR TEMP; Start 06/20/19 at 13:00 Acetaminophen/ Hydrocodone Bitart (Kress (5/325)) 1 tab Q6H PRN PO .PAIN 4-6; Start 06/20/19 at 13:00 Docusate Sodium (Colace) 100 mg Q12H PRN PO .CONSTIPATION; Start 06/20/19 at 13:00 Bisacodyl (Dulcolax Supp) 10 mg DAILY PRN [place] .CONSTIPATION; Start 06/20/19 at 13:00 Famotidine (Pepcid) 20 mg Q12 PO Last administered on 06/21/19at 09:09; Admin Dose 20 MG; Start 06/20/19 at 21:00 Cinacalcet (Sensipar) 30 mg DAILY PO Last administered on 06/21/19 09:09; Admin Dose 30 MG; Start 06/20/19 at 14:00 Enoxaparin Sodium (Lovenox) 65 mg Q12 SC Last administered on 06/21/19 09:17; Admin Dose 65 MG; Start 06/20/19 at 21:00 Linagliptin (Tradjenta) 5 mg DAILY PO Last administered on 06/21/19 09:09; Admin Dose 5 MG; Start 06/20/19 at 13:00 Diagnostic Test (Pha) (Accu-Chek) 1 ea AC MEALS XX Last administered on 06/20/19 18:06; Admin Dose 1 EA; Start 06/20/19 at 17:30 Diagnostic Test (Pha) (Accu-Chek) 1 ea 2 HOURS AFTER MEALS XX Last administered on 06/20/19 13:34; Admin Dose 1 EA; Start 06/20/19 at 14:00 CARMEN GRIFFITHS MD Jun 21, 2019 13:55
[2019-06-21 15:26] VITALS: BP 124/66; PULSE 70; RESP 18
[2019-06-21 20:13] VITALS: BP 142/63; PULSE 80; RESP 20
[2019-06-22 00:24] VITALS: BP 138/64; PULSE 74; RESP 20
[2019-06-22 04:01] VITALS: BP 140/65; PULSE 76; RESP 20
[2019-06-22] MEDS: ACCU-CHEK XX SCH ×6 (07:00→21:44)
[2019-06-22 07:28] VITALS: BP 131/60; PULSE 70; RESP 18
[2019-06-22] MEDS: LINAGLIPTIN 5 MG TABLET PO SCH (08:17)
[2019-06-22] MEDS: CINACALCET 30 MG TAB PO SCH (08:17)
[2019-06-22] MEDS: FAMOTIDINE 20 MG TAB PO SCH ×2 (08:18→21:44)
[2019-06-22] MEDS: ENOXAPARIN 80 MG/0.8 ML SYG SC SCH ×2 (08:27→22:01)
[2019-06-22 11:13] VITALS: BP 121/81; PULSE 84; RESP 18
--- NOTE | 2019-06-22 12:58 | DS ---
Date/Time of Note Date/Time of Note DATE: 06/22/19 TIME: 12:52 Discharge Summary Admission/Discharge Info Admit Date/Time Jun 20, 2019 at 09:29 Discharge Date/Time Discharge Diagnosis 89-year-old female who was brought to the emergency room for evaluation by her family because of left lower extremity swelling and redness Acute DVT involving the left common femoral, superficial femoral, and popliteal veins. Recently diagnosed vertebral compression fracture in the setting of primary hyperparathyroidism Prediabetes. Hx of R sided breast CA s/p ost right mastectomy and right axillary sarahi dissection with no evidence of metastatic disease. . Patient Condition: Stable Consults None. . Hospital Course 89-year-old female who was brought to the emergency room for evaluation by her family because of acute onset left lower extremity swelling and redness and was found by ultrasound to have an extensive DVT involving the left common femoral, superficial femoral, and popliteal veins. Of note is that the patient was recently diagnosed with a vertebral compression fracture in the setting of primary hyperparathyroidism and since has been having limited ambulation. 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 She is status post right-sided mastectomy. At this time she is doing much better in terms of discomfort, redness is also mildly improved, she will be discharged on oral anticoagulation therapy for continued follow-up with primary care doctor. Hemoglobin A1c came back 6.4 and patient was started on low-dose Tradjenta for prediabetes. Home Meds Reported Medications Furosemide* (Furosemide*) 20 Mg Tablet, 20 MG PO DAILY, #60 TAB PATIENT TAKE NEEDED 06/20/19 Discontinued Reported Medications [Thyroid] No Conflict Check, 1 TAB PO Q28D 03/27/19 Discontinued Scripts Amoxicillin/Potassium Clav (Amox-Clav 875-125 mg Tablet) 875-125 mg Tab, 1 TAB PO BID, #8 TAB Prov:AUTUMN,BOLATITO M. 03/31/19 Linagliptin (TRADJENTA) 5 Mg Tablet, 5 MG PO DAILY, #30 TAB Prov:AUTUMN,BOLATITO M. 03/31/19 Lactobacillus Rhamnosus GG (Culturelle) 1 Each Capsule, 1 CAP PO BID, #60 CAP Prov:AUTUMN,BOLATITO M. 03/31/19 Docusate Sodium* (Colace*) 100 Mg Capsule, 100 MG PO BID, #60 CAP Prov:AUTUMN,BOLATITO M. 03/31/19 Follow-up Plan Followup with your primary doctor within the next 1-2 weeks. If you don't have one please let someone know, we can give you resources that may help you pick one. You may call Dr David Blevins's office. he's accepting new patients Name, Degree: David Blevins MD Specialty: Internal Medicine Comments: Office Address: [address] [place] [address] [place], [place] [id number] Office Office You may also call your insurance company to assign one to you. Review your medication list with your nurse before leaving and if you need new prescriptions please let your nurse know. I may have made changes to your home medications or given you new prescriptions, please let your primary doctor know as well. Stay compliant with your medications and report any side effects to your PCP or pharmacist. Return to the ER if you have any concerns and cannot reach your doctors or call your insurance company, they usually have a nurse that can help you. Primary Care Provider Not On Staff Doctor Time spent on discharge: > 30 minutes Pending Labs Laboratory Tests Test 06/21/19 14:44 06/21/19 17:27 06/21/19 20:22 06/22/19 08:05 Bedside 102 143 136 108 Glucose mg/dL (70-220) mg/dL (70-220) mg/dL (70-220) mg/dL (70-220) Test 06/22/19 10:42 06/22/19 12:20 Bedside 142 131 Glucose mg/dL (70-220) mg/dL (70-220) VINITA LEYVA Jun 22, 2019 12:58
[2019-06-22 15:59] VITALS: BP 136/75; PULSE 76; RESP 20
[2019-06-22 23:55] VITALS: BP 124/58; PULSE 96; RESP 19
[2019-06-23 04:18] VITALS: BP 111/61; PULSE 74; RESP 19
[2019-06-23] MEDS: ACCU-CHEK XX SCH ×6 (06:48→20:28)
[2019-06-23 07:37] VITALS: BP 136/62; PULSE 73; RESP 18
[2019-06-23] MEDS: FAMOTIDINE 20 MG TAB PO SCH ×2 (08:13→20:28)
[2019-06-23] MEDS: CINACALCET 30 MG TAB PO SCH (08:13)
[2019-06-23] MEDS: ENOXAPARIN 80 MG/0.8 ML SYG SC SCH ×2 (08:15→20:30)
[2019-06-23] MEDS: LINAGLIPTIN 5 MG TABLET PO SCH (09:57)
[2019-06-23 12:28] VITALS: BP 153/64; PULSE 78; RESP 18
--- NOTE | 2019-06-23 13:16 | PN ---
Date/Time of Note Date/Time of Note DATE: 06/23/19 TIME: 13:14 Assessment/Plan VTE Prophylaxis Risk score (from Ns)>0 risk: 9 SCD applied (from Ns): No SCD contraindicated: DVT Pharmacological prophylaxis: apixaban Lines/Catheters IV Catheter Type (from [facility]): Saline Lock Urinary Cath still in place: No Assessment/Plan Hospital Course Unfortunately at this time her discharge is limited by placement, 89-year-old female who was brought to the emergency room for evaluation by her family because of acute onset left lower extremity swelling and redness and was found by ultrasound to have an extensive DVT involving the left common femoral, super ficial femoral, and popliteal veins. Of note is that the patient was recently diagnosed with a vertebral compression fracture in the setting of primary hyperparathyroidism and since has been having limited ambulation. 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 She is status post right-sided mastectomy. At this time she is doing much better in terms of discomfort, redness is also mildly improved, she will be discharged on oral anticoagulation therapy for continued follow-up with primary care doctor. Hemoglobin A1c came back 6.4 and patient was started on low-dose Tradjenta for prediabetes. Unfortunately at this time, discharge is limited by placement. Patient resides alone with friends and family coming into check on her intermittently, but due to debility at this time she is unable to be by herself. I have offered the patient short-term rehab prior to being discharged home but she has refused and so we will contact the family to determine what we can do. Result Diagram: 06/21/19 0513 06/21/19 0513 Results 24hrs Laboratory Tests Test 06/22/19 17:29 06/22/19 21:43 06/23/19 06:43 06/23/19 09:55 Bedside Glucose 88 201 107 124 Test 06/23/19 11:25 Bedside Glucose 118 Subjective 24 Hr Interval Summary Free Text/Dictation unable to dc yesterday d/t debility, not safe to go home where she lives alone per PT. doesn't want to go to short-term rehab. Apparently she had to do this last time she was admitted and she did not like the experience. Exam/Review of Systems Exam Vitals Vital Signs Date Temp Pulse Resp B/P (MAP) Pulse Ox O2 O2 Flow FiO2 Time Delivery Rate 06/23/19 99.6 78 18 153/64 94 Room Air 12:28 (93) 06/22/19 2.0 08:00 06/22/19 21 02:00 Intake and Output 06/22/19 06/22/19 06/23/19 1515:00 23:00 07:00 IntakeIntake Total 320 ml 360 ml 640 ml BalanceBalance 320 ml 360 ml 640 ml Exam Constitutional: alert, oriented, elderly Head: atraumatic, normocephalic Neck: non-tender, supple Respiratory: clear to auscultation, diminished Cardiovascular: regular rate and rhythm Gastrointestinal: S/ NT / ND / +BS Extremities: Mild left lower extremity edema, good radial pulses Results Results 24hrs Laboratory Tests Test 06/22/19 17:29 06/22/19 21:43 06/23/19 06:43 06/23/19 09:55 Bedside Glucose 88 201 107 124 Test 06/23/19 11:25 Bedside Glucose 118 Medications Medication Current Medications IV Flush (NS 3 ml) 3 ml PER PROTOCOL IV ; Start 06/20/19 at 13:00 Lorazepam (Ativan) 0.5 mg Q8H PRN PO .ANXIETY; Start 06/20/19 at 13:00 Ondansetron HCl (Zofran Tab) 4 mg Q6H PRN PO NAUSEA/VOMITING; Start 06/20/19 at 13:00 Acetaminophen (Tylenol Tab) 650 mg Q6H PRN PO .PAIN 1-3 OR TEMP; Start 06/20/19 at 13:00 Acetaminophen/ Hydrocodone Bitart (Olean (5/325)) 1 tab Q6H PRN PO .PAIN 4-6; Start 06/20/19 at 13:00 Docusate Sodium (Colace) 100 mg Q12H PRN PO .CONSTIPATION; Start 06/20/19 at 13:00 Bisacodyl (Dulcolax Supp) 10 mg DAILY PRN RI .CONSTIPATION; Start 06/20/19 at 13:00 Famotidine (Pepcid) 20 mg Q12 PO Last administered on 06/23/19at 08:13; Admin Dose 20 MG; Start 06/20/19 at 21:00 Cinacalcet (Sensipar) 30 mg DAILY PO Last administered on 06/23/19 08:13; Admin Dose 30 MG; Start 06/20/19 at 14:00 Enoxaparin Sodium (Lovenox) 65 mg Q12 SC Last administered on 06/23/19 08:15; Admin Dose 65 MG; Start 06/20/19 at 21:00 Linagliptin (Tradjenta) 5 mg DAILY PO Last administered on 06/23/19 09:57; Admin Dose 5 MG; Start 06/20/19 at 13:00 Diagnostic Test (Pha) (Accu-Chek) 1 ea AC MEALS XX Last administered on 06/23/19 06:48; Admin Dose 1 EA; Start 06/20/19 at 17:30 Diagnostic Test (Pha) (Accu-Chek) 1 ea 2 HOURS AFTER MEALS XX Last administered on 06/22/19 21:44; Admin Dose 1 EA; Start 06/20/19 at 14:00 VINITA LEYVA Jun 23, 2019 13:16
[2019-06-23 15:30] VITALS: BP 146/63; PULSE 79; RESP 19
--- NOTE | 2019-06-23 16:22 | PDOCDIS ---
Discharge Instructions DIAGNOSIS Discharge Diagnosis 89-year-old female who was brought to the emergency room for evaluation by her family because of left lower extremity swelling and redness Acute DVT involving the left common femoral, superficial femoral, and popliteal veins. Recently diagnosed vertebral compression fracture in the setting of primary hyperparathyroidism Prediabetes. Hx of R sided breast CA s/p ost right mastectomy and right axillary sarahi dissection with no evidence of metastatic disease. . CONDITION [id number] Patient Condition: [id number] Stable HOME CARE INSTRUCTIONS: [id number] Diet Instructions: [id number] Regular ACTIVITY: [id number] Activity Restrictions: [id number] Slowly Increase Activity Rest between Activity [id number] Activity Restrictions Comment: [id number] Fall precautions FOLLOW UP/APPOINTMENTS Follow-up Plan Followup with your primary doctor within the next 1-2 weeks. If you don't have one please let someone know, we can give you resources that may help you pick one. You may call Dr David Blevins's office. he's accepting new patients Name, Degree: David Blevins MD Specialty: Internal Medicine Comments: Office Address: [address] [place] [address] Office Office You may also call your insurance company to assign one to you. Review your medication list with your nurse before leaving and if you need new prescriptions please let your nurse know. I may have made changes to your home medications or given you new prescriptions, please let your primary doctor know as well. Stay compliant with your medications and report any side effects to your PCP or pharmacist. Return to the ER if you have any concerns and cannot reach your doctors or call your insurance company, they usually have a nurse that can help you. VINITA LEYVA Jun 23, 2019 16:22
== END 2019-06-23 21:00 | DRG 301 ==
LOC: E/R 08:08 → 6WM 09:29 → CANRESERV 09:54
PROVIDERS: ADMIT Internal Medicine; ATTEND Family Medicine
DX: I82.412 Acute embolism and thrombosis of left femoral vein (principal); I82.432 Acute embolism and thrombosis of left popliteal vein; E21.0 Primary hyperparathyroidism; I10 Essential (primary) hypertension; E11.9 Type 2 diabetes mellitus without complications; M80.88XD Other osteoporosis with current pathological fracture, vertebra(e), subsequent encounter for fracture with routine healing; M48.50XD Collapsed vertebra, not elsewhere classified, site unspecified, subsequent encounter for fracture with routine healing; Z95.0 Presence of cardiac pacemaker; Z74.01 Bed confinement status; Z90.11 Acquired absence of right breast and nipple; Z88.0 Allergy status to penicillin; Z85.3 Personal history of malignant neoplasm of breast
CPT/HCPCS: 36415; 71045; 80053; 82962; 83036; 83690; 83735; 84484; 85025; 93005; 93971; 97110; 97162; 97530; J7030